=== PATIENT | male | born 1935 | race Caucasian/White ===

== ENCOUNTER → 2018-07-16 | Outpatient (CLI) | payer MEDICARE, BC ==
--- NOTE | 2018-07-16 12:27 | XR ---
EXAMINATION TYPE: XR chest 2V DATE OF EXAM: 07/16/2018 COMPARISON: 04/23/2016 TECHNIQUE: PA and lateral views submitted. HISTORY: Cough FINDINGS: The lungs are clear and there is no pneumothorax, pleural effusion, or focal pneumonia. Curvature t he spine with hypertrophic and degenerative changes. Arthropathy shoulders. No pneumothorax or overt failure. Atherosclerotic change of the aorta. IMPRESSION: 1. No acute process.
== END | disposition home or self-care (01) ==
LOC: RADXRMAIN 11:57
PROVIDERS: ATTEND Internal Medicine Geriatric Medicine
DX: R05 Cough (principal)
CPT/HCPCS: 71046

== ENCOUNTER 2019-11-15 10:42 | Observation (INO) | payer MEDICARE, BC ==
[2019-11-15] MEDS ORDERED: SODIUM CHLORIDE 0.9% 500 ML 500 ML IV STA (11:14)
--- NOTE | 2019-11-15 11:19 | ED ---
General Adult HPI - General Chief complaint: Shortness of Breath Stated complaint: SOB Time Seen by Provider: 11/15/19 11:00 Source: patient, RN notes reviewed, old records reviewed Mode of arrival: wheelchair Limitations: no limitations - History of Present Illness Initial comments: This is an 84-year-old male who presents to the emergency department stating over the last few days he's been short of breath anytime he gets up and moves around. Patient states he has no underlying breathing problems that he knows of. Patient states he has coronary artery disease in the past has had one stent. Patient states he takes one aspirin a day and occasionally take some [place]. Patient states he gets up and walks across [place] is noted that he is very short of breath where as a week or 2 ago this did not occur. Patient states he has noted a three-day history of black stools however they have not been bloody. Patient denies any abdominal pain. Patient denies any chest pain. Patient denies any palpitations. Patient denies any recent fever chills. - Related Data Home Medications Medication Instructions Recorded Confirmed Metoprolol Tartrate 25 mg PO BID 11/27/15 11/15/19 Pyridoxine [Vitamin B-6] 100 mg PO DAILY 11/27/15 11/15/19 Donepezil [Aricept] 10 mg PO HS 11/15/19 11/15/19 Multivit-Min/FA/Lycopen/Lutein 1 tab PO DAILY 11/15/19 11/15/19 [Centrum Silver Men Tablet] Prostate Health Vitamin 1 tab PO DAILY 11/15/19 11/15/19 amLODIPine [Norvasc] 2.5 mg PO DAILY 11/15/19 11/15/19 Allergies Allergy/AdvReac Type Severity Reaction Status Date / Time fluticasone propionate AdvReac "prescription Verified 04/23/16 16:31 [From Flonase] strength gave me double vision" lisinopril AdvReac Cough Verified 04/23/16 16:31 Review of Systems ROS Statement: Those systems with pertinent positive or pertinent negative responses have been documented in the HPI. ROS Other: All systems not noted in ROS Statement are negative. Past Medical History Past Medical History: GERD/Reflux, Hypertension, Myocardial Infarction ([place]), Sleep Apnea/CPAP/BIPAP Additional Past Medical History / Comment(s): HAVING LT LOWER ABD QUAD PAIN AND CONSTIPATION, dementia Last Myocardial Infarction Date:: SEP 2010 History of Any Multi-Drug Resistant Organisms: None Reported Past Surgical History: Heart Catheterization With Stent, Tonsillectomy Additional Past Surgical History / Comment(s): HEART STENT X 2 Past Anesthesia/Blood Transfusion Reactions: No Reported Reaction Additional Past Anesthesia/Blood Transfusion Reaction / Comment(s): NEVER HAS HAD BLOOD TRANSFUSION Date of Last Stent Placement:: 2009 Past Psychological History: No Psychological Hx Reported Smoking Status: Former smoker Past Alcohol Use History: None Reported Past Drug Use History: None Reported - Past Family History Mother Family Medical History: Chest Pain / Angina Father Family Medical History: Cancer Additional Family Medical History / Comment(s): PROSTATE Brother(s) Family Medical History: Cancer, Myocardial Infarction ([place]) Additional Family Medical History / Comment(s): COLON CA General Exam - General Exam Comments Initial Comments: GENERAL: Patient is well-developed and well-nourished. Patient is nontoxic and well- hydrated and is in no acute distress. ENT: Neck is soft and supple. No significant lymphadenopathy is noted. Oropharynx is clear. Moist mucous membranes. Neck has full range of motion without e liciting any pain. EYES: The sclera were anicteric and conjunctiva were pink and moist. Extraocular movements were intact and pupils were equal round and reactive to light. Eyelids were unremarkable. PULMONARY: Unlabored respirations. Good breath sounds bilaterally. No audible rales rhonchi or wheezing was noted. CARDIOVASCULAR: There is a regular rate and rhythm without any murmurs gallops or rubs. ABDOMEN: Soft and nontender with normal bowel sounds. No palpable organomegaly was n oted. There is no palpable pulsatile mass. SKIN: Skin is clear with no lesions or rashes and otherwise unremarkable. NEUROLOGIC: Patient is alert and oriented x3. Cranial nerves II through XII are grossly intact. Motor and sensory are also intact. Normal speech, volume and content. Symmetrical smile. MUSCULOSKELETAL: Normal extremities with adequate strength and full range of motion. No lower extremity swelling or edema. No calf tenderness. RECTAL: Rectal exam did have some dark brown stool LYMPHATICS: No significant lymphadenopathy is noted PSYCHIATRIC: Normal psychiatric evaluation. Limitations: no limitations Course Vital Signs 11/15/19 11/15/19 11/15/19 10:45 12:00 13:00 Temperature 97.8 F Pulse Rate 95 87 85 Respiratory 18 18 18 Rate Blood Pressure 119/73 114/83 O2 Sat by Pulse 93 L 98 Oximetry Medical Decision Making - Medical Decision Making EKG shows normal sinus rhythm at 87 bpm MI interval 146 dresses 92 QT interval 380 QTC is 457. Patient's EKG shows no ST segment elevation or depression. Occult stool is positive. Hemoglobin is low at 10. I spoke with Dr. Carrillo he agreed to admit the patient admitted the patient wrote admitting orders. Dr. Carrillo wanted the patient in the ICU. I spoke with Dr. Mcdaniel and he did not want the patient in the ICU at this point because he seems stable and he would be more than willing to take him in the ICU later if anything changed. - Lab Data Result diagrams: 11/15/19 11:36 11/15/19 11:36 Lab Results 11/15/19 11/15/19 11/15/19 Range/Units 11:36 11:36 11:36 WBC 11.4 H (3.8-10.6) k/uL RBC 3.19 L (4.30-5.90) m/uL Hgb 10.0 L (13.0-17.5) gm/dL Hct 31.1 L (39.0-53.0) % MCV 97.5 (80.0-100.0) fL MCH 31.3 (25.0-35.0) pg MCHC 32.1 (31.0-37.0) g/dL RDW 12.7 (11.5-15.5) % Plt Count 252 (150-450) k/uL Neutrophils % 68 % Lymphocytes % 20 % Monocytes % 7 % Eosinophils % 2 % Basophils % 1 % Neutrophils # 7.8 H (1.3-7.7) k/uL Lymphocytes # 2.3 (1.0-4.8) k/uL Monocytes # 0.8 (0-1.0) k/uL Eosinophils # 0.2 (0-0.7) k/uL Basophils # 0.1 (0-0.2) k/uL PT (9.0-12.0) sec INR (<1.2) APTT (22.0-30.0) sec Sodium 139 (137-145) mmol/L Potassium 4.5 (3.5-5.1) mmol/L Chloride 108 H (98-107) mmol/L Carbon Dioxide 23 (22-30) mmol/L Anion Gap 8 mmol/L BUN 66 H (9-20) mg/dL Creatinine 2.11 H (0.66-1.25) mg/dL Est GFR (CKD-EPI)AfAm 33 (>60 ml/min/1.73 sqM) Est GFR (CKD-EPI)NonAf 28 (>60 ml/min/1.73 sqM) Glucose 93 (74-99) mg/dL Plasma Lactic Acid Tyrone (0.7-2.0) mmol/L Calcium 9.2 (8.4-10.2) mg/dL Magnesium 2.1 (1.6-2.3) mg/dL Total Bilirubin 0.4 (0.2-1.3) mg/dL AST 29 (17-59) U/L ALT 24 (4-49) U/L Alkaline Phosphatase 57 (38-126) U/L Troponin I (0.000-0.034) ng/mL NT-Pro-B Natriuret Pep 162 pg/mL Total Protein 6.8 (6.3-8.2) g/dL Albumin 3.6 (3.5-5.0) g/dL Stool Occult Blood (Negative) 11/15/19 11/15/19 11/15/19 Range/Units 11:36 11:36 11:36 WBC (3.8-10.6) k/uL RBC (4.30-5.90) m/uL Hgb (13.0-17.5) gm/dL Hct (39.0-53.0) % MCV (80.0-100.0) fL MCH (25.0-35.0) pg MCHC (31.0-37.0) g/dL RDW (11.5-15.5) % Plt Count (150-450) k/uL Neutrophils % % Lymphocytes % % Monocytes % % Eosinophils % % Basophils % % Neutrophils # (1.3-7.7) k/uL Lymphocytes # (1.0-4.8) k/uL Monocytes # (0-1.0) k/uL Eosinophils # (0-0.7) k/uL Basophils # (0-0.2) k/uL PT 10.4 (9.0-12.0) sec INR 1.0 (<1.2) APTT 20.4 L (22.0-30.0) sec Sodium (137-145) mmol/L Potassium (3.5-5.1) mmol/L Chloride (98-107) mmol/L Carbon Dioxide (22-30) mmol/L Anion Gap mmol/L BUN (9-20) mg/dL Creatinine (0.66-1.25) mg/dL Est GFR (CKD-EPI)AfAm (>60 ml/min/1.73 sqM) Est GFR (CKD-EPI)NonAf (>60 ml/min/1.73 sqM) Glucose (74-99) mg/dL Plasma Lactic Acid Tyrone (0.7-2.0) mmol/L Calcium (8.4-10.2) mg/dL Magnesium (1.6-2.3) mg/dL Total Bilirubin (0.2-1.3) mg/dL AST (17-59) U/L ALT (4-49) U/L Alkaline Phosphatase (38-126) U/L Troponin I <0.012 (0.000-0.034) ng/mL NT-Pro-B Natriuret Pep pg/mL Total Protein (6.3-8.2) g/dL Albumin (3.5-5.0) g/dL Stool Occult Blood Positive (Negative) 11/15/19 Range/Units 12:34 WBC (3.8-10.6) k/uL RBC (4.30-5.90) m/uL Hgb (13.0-17.5) gm/dL Hct (39.0-53.0) % MCV (80.0-100.0) fL MCH (25.0-35.0) pg MCHC (31.0-37.0) g/dL RDW (11.5-15.5) % Plt Count (150-450) k/uL Neutrophils % % Lymphocytes % % Monocytes % % Eosinophils % % Basophils % % Neutrophils # (1.3-7.7) k/uL Lymphocytes # (1.0-4.8) k/uL Monocytes # (0-1.0) k/uL Eosinophils # (0-0.7) k/uL Basophils # (0-0.2) k/uL PT (9.0-12.0) sec INR (<1.2) APTT (22.0-30.0) sec Sodium (137-145) mmol/L Potassium (3.5-5.1) mmol/L Chloride (98-107) mmol/L Carbon Dioxide (22-30) mmol/L Anion Gap mmol/L BUN (9-20) mg/dL Creatinine (0.66-1.25) mg/dL Est GFR (CKD-EPI)AfAm (>60 ml/min/1.73 sqM) Est GFR (CKD-EPI)NonAf (>60 ml/min/1.73 sqM) Glucose (74-99) mg/dL Plasma Lactic Acid [place] 1.0 (0.7-2.0) mmol/L Calcium (8.4-10.2) mg/dL Magnesium (1.6-2.3) mg/dL Total Bilirubin (0.2-1.3) mg/dL AST (17-59) U/L ALT (4-49) U/L Alkaline Phosphatase (38-126) U/L Troponin I (0.000-0.034) ng/mL NT-Pro-B Natriuret Pep pg/mL Total Protein (6.3-8.2) g/dL Albumin (3.5-5.0) g/dL Stool Occult Blood (Negative) Disposition Clinical Impression: Dyspnea, Acute GI bleeding Disposition: ADMITTED IP TO THIS HOSP Referrals: Carroll Carrillo MD [Primary Care Provider] - 1-2 days Time of Disposition: 13:01
[2019-11-15 11:54] LABS: Basophils # (A) 0.1 k/uL (0-0.2); Basophils % (A) 1 %; Eosinophils # (A) 0.2 k/uL (0-0.7); Eosinophils % (A) 2 %; HCT 31.1 % (39.0-53.0); Lymphocytes # (A) 2.3 k/uL (1.0-4.8); Lymphocytes % (A) 20 %; MCH 31.3 pg (25.0-35.0); MCHC 32.1 g/dL (31.0-37.0); MCV 97.5 fL (80.0-100.0); Mean Platelet Volume 8.4; Monocytes # (A) 0.8 k/uL (0-1.0); Monocytes % (A) 7 %; Neutrophils # (A) 7.8 k/uL (1.3-7.7); Neutrophils % (A) 68 %; Platelet Count 252 k/uL (150-450); RBC 3.19 m/uL (4.30-5.90); RDW 12.7 % (11.5-15.5); WBC 11.4 k/uL (3.8-10.6)
[2019-11-15 12:11] LABS: Albumin 3.6 g/dL (3.5-5.0); Calcium 9.2 mg/dL (8.4-10.2); Magnesium 2.1 mg/dL (1.6-2.3); Potassium 4.5 mmol/L (3.5-5.1); Total Bilirubin 0.4 mg/dL (0.2-1.3); Total Protein 6.8 g/dL (6.3-8.2)
[2019-11-15 12:17] LABS: Prothrombin Time 10.4 sec (9.0-12.0)
--- NOTE | 2019-11-15 12:29 | XR ---
EXAMINATION TYPE: XR chest 2V DATE OF EXAM: 11/15/2019 COMPARISON: Chest x-ray July 16, 2018 HISTORY: Increased hypoxia for 2 days. TECHNIQUE: Frontal and lateral views of the chest are obtained. FINDINGS: There is chronic parenchymal changes without suspicious focal air space opacity, pleural e ffusion, or pneumothorax seen. The cardiac silhouette size is upper limits of normal with atheroscle rotic and ectatic aorta. Multilevel spurring spine redemonstrated.. IMPRESSION: Chronic changes without acute pulmonary process. No significant change from prior.
[2019-11-15 12:40] LABS: Partial Thromboplastin Time 20.4 sec (22.0-30.0)
[2019-11-15] MEDS ORDERED: SODIUM CHLORIDE 0.9% 1,000 ML IV ONE (13:07)
[2019-11-15 15:02] LABS: Basophils # (A) 0.1 k/uL (0-0.2); Basophils % (A) 1 %; Eosinophils # (A) 0.1 k/uL (0-0.7); Eosinophils % (A) 1 %; HCT 30.7 % (39.0-53.0); Lymphocytes # (A) 2.2 k/uL (1.0-4.8); Lymphocytes % (A) 19 %; MCHC 32.7 g/dL (31.0-37.0); MCV 97.8 fL (80.0-100.0); Mean Platelet Volume 8.1; Monocytes # (A) 0.5 k/uL (0-1.0); Monocytes % (A) 4 %; Neutrophils # (A) 8.8 k/uL (1.3-7.7); Neutrophils % (A) 73 %; Platelet Count 255 k/uL (150-450); RBC 3.14 m/uL (4.30-5.90); RDW 12.9 % (11.5-15.5); Reticulocyte % 2.7 % (0.5-2.0)
[2019-11-15] MEDS ORDERED: PANTOPRAZOLE 40 MG/10 ML VIAL IVP SCH (18:15)
[2019-11-15 18:34] LABS: % Iron Saturation 63.68 (15.00-50.00); Iron 142 ug/dL (65-175); Total Iron Binding Capacity 223 ug/dL (228-460)
[2019-11-15 19:00] LABS: Folate, Serum >24.0 ng/mL
--- NOTE | 2019-11-15 19:51 | P.HPIM ---
History of Present Illness H&P Date: 11/15/19 Chief Complaint: Shortness of breath, black stool, acute blood loss anemia, CAD, 84-year-old male one of my office patient with known for long time with past medical history of CAD post CA few years ago who seen Dr. batista on regular basis was on to have history of hypertension hyperlipidemia and obstructive sleep apnea who also was diagnosed with Alzheimer disease this past year has been on medication and doing slightly but better. Patient started complaining to his about having shortness of breath with the exertion become much worse the last 3 days this morning he was post to come to the office for evaluation but he felt very bad ask his to bring him to [facility]. Apparently has been having black stool and tarry stool for the last 24 hours at [facility] department found to have hemoglobin of 10 g with positive Hemoccult and mild gastritis. Patient now was started on pantoprazole IV start on IV fluid consult gastroenterology Will admit patient to the hospital for the above problem. Review of Systems CONSTITUTIONAL: Well-developed no acute respiratory distress. Positive lightheadedness EYES: No icterus sclerae, no conjunctivitis. EARS, NOSE, MOUTH, THROAT, and FACE: No sore throat, lymphadenopathy, carotid bruits or deformity. RESPIRATORY: No SOB cough or wheezes. CARDIOVASCULAR: No CP, Palpitation, positive PND orthopnea which shortness of breath no angina. GASTROINTESTINAL: Positive abdominal discomfort with tarry stool and mid abdominal pain and discomfort no nausea vomiting mild constipation. GENITOURINARY: Negative for Hematuria or UTI, no kidney stones. INTEGUMENT/BREAST: Negative for any muscular injury with mild osteoarthritis.. HEMATOLOGIC/LYMPHATIC: Negative for bleed or purpura. MUSCULOSKELTAL: Negative for Myalgia or arthralgia. NEURLOGICAL: No LOC, Sz or syncope, blurred vision dizziness or abnormality.. BEHAVIORAL/PSYCH: Negative. Mild memory loss. ENDOCRINE: Negative. Past Medical History Past Medical History: GERD/Reflux, Hypertension, Myocardial Infarction ([place]), Sleep Apnea/CPAP/BIPAP Additional Past Medical History / Comment(s): HAVING LT LOWER ABD QUAD PAIN AND CONSTIPATION, dementia Last Myocardial Infarction Date:: SEP 2010 History of Any Multi-Drug Resistant Organisms: None Reported Past Surgical History: Heart Catheterization With Stent, Tonsillectomy Additional Past Surgical History / Comment(s): HEART STENT X 2 Past Anesthesia/Blood Transfusion Reactions: No Reported Reaction Additional Past Anesthesia/Blood Transfusion Reaction / Comment(s): NEVER HAS HAD BLOOD TRANSFUSION Date of Last Stent Placement:: 2009 Past Psychological History: No Psychological Hx Reported Smoking Status: Former smoker Past Alcohol Use History: None Reported Past Drug Use History: None Reported - Past Family History Mother Family Medical History: Chest Pain / Angina Father Family Medical History: Cancer Additional Family Medical History / Comment(s): PROSTATE Brother(s) Family Medical History: Cancer, Myocardial Infarction ([place]) Additional Family Medical History / Comment(s): COLON [place] Medications and Allergies Home Medications Medication Instructions Recorded Confirmed Type Metoprolol Tartrate 25 mg PO BID 11/27/15 11/15/19 History Pyridoxine [Vitamin B-6] 100 mg PO DAILY 11/27/15 11/15/19 History Donepezil [Aricept] 10 mg PO HS 11/15/19 11/15/19 History Multivit-Min/FA/Lycopen/Lutein 1 tab PO DAILY 11/15/19 11/15/19 History [Centrum Silver Men Tablet] Prostate Health Vitamin 1 tab PO DAILY 11/15/19 11/15/19 History amLODIPine [Norvasc] 2.5 mg PO DAILY 11/15/19 11/15/19 History Allergies Allergy/AdvReac Type Severity Reaction Status Date / Time fluticasone propionate AdvReac "prescription Verified 04/23/16 16:31 [From Flonase] strength gave me double vision" lisinopril AdvReac Cough Verified 04/23/16 16:31 Physical Exam Vitals: Vital Signs Temp Pulse Resp BP Pulse Ox 11/15/19 18:38 98.3 F 100 18 147/88 97 11/15/19 14:59 72 18 100/57 11/15/19 13:00 85 18 114/83 98 11/15/19 12:00 87 18 11/15/19 10:45 97.8 F 95 18 119/73 93 L Intake and Output 11/15/19 11/15/19 11/15/19 06:59 14:59 22:59 Other: Weight 99.79 kg General Appearance: Alert, cooperative, no distress, appears stated age. Neck HEENT: Supple, no lymphadenopathy, no thyroid enlargement, no carotid bruits. Lungs: Clear to auscultation without crackles or wheezes no rhonchi, no deformity. Chest Wall: Chest wall normal expansion with deep inspiration no tenderness and no deformity was found on exam, no costochondral pain or discomfort. Heart: Regular rate and rhythm, S1, S2 normal positive S3 positive ejection murmur Back: Symmetric, no curvature, ROM normal, no CVA tenderness. Abdomen: Soft positive bowel sound organomegaly slight discomfort epigastric area no rebound or rigidity. Extremities: Extremities normal, atraumatic, no cyanosis or edema. Pulses: 2+ and symmetric. Skin: Skin color, texture, tugor normal, no rashes or lesions. Neurologic: Alert oriented x3 cranial nerves II through XII intact, no motor deficit, no abnormal balance or gait. Results CBC & Chem 7: 11/15/19 14:53 11/15/19 11:36 Labs: Abnormal Lab Results - Last 24 Hours (Table) 11/15/19 11/15/19 11/15/19 Range/Units 11:36 11:36 11:36 WBC 11.4 H (3.8-10.6) k/uL RBC 3.19 L (4.30-5.90) m/uL Hgb 10.0 L (13.0-17.5) gm/dL Hct 31.1 L (39.0-53.0) % Neutrophils # 7.8 H (1.3-7.7) k/uL Retic Count (0.5-2.0) % APTT 20.4 L (22.0-30.0) sec Chloride 108 H (98-107) mmol/L BUN 66 H (9-20) mg/dL Creatinine 2.11 H (0.66-1.25) mg/dL TIBC (228-460) ug/dL % Saturation (15.00-50.00) 11/15/19 11/15/19 Range/Units 11:36 14:53 WBC 12.0 H (3.8-10.6) k/uL RBC 3.14 L (4.30-5.90) m/uL Hgb 10.0 L (13.0-17.5) gm/dL Hct 30.7 L (39.0-53.0) % Neutrophils # 8.8 H (1.3-7.7) k/uL Retic Count 2.7 H (0.5-2.0) % APTT (22.0-30.0) sec Chloride (98-107) mmol/L BUN (9-20) mg/dL Creatinine (0.66-1.25) mg/dL TIBC 223 L (228-460) ug/dL % Saturation 63.68 H (15.00-50.00) Thrombosis Risk Factor Assmnt - DVT/VTE Prophylaxis DVT/VTE Prophylaxis: Mechanical Prophylaxis ordered Assessment and Plan Plan: 1 acute GI bleed: Most likely bleeding ulcer or gastritis, patient will be hospitalized will consult GI, patient will be on pantoprazole IV we'll plan to send him for an EGD tomorrow if persistent bleeding might require lower GI study as well. 2 acute blood loss anemia: With significant decrease in hemoglobin over 2 g in the last few weeks along with slightly increased BUN consistent with the bleeding. Patient will have CBC every 8 hours a continue fluid resuscitation and transfusion Be done only if his hemoglobin below 8 with symptoms. 3 significant shortness of breath: Most likely will has been worsening with his anemia continue to correct his anemia and GI bleed continue to treat patient patient be seeing cardiology in consultation. 4 acute kidney injury with chronic kidney disease: Patient is a stage III chronic kidney disease with acute kidney injury with the current GI bleed and volume loss specially with the increase the urine continue mild hydration repeat CMP daily. 5 CAD post CA post PCI and stent placement last one was in 2009 has been seeing cardiology regular basis. 6 Hypertension: Patient is doing well on metoprolol and amlodipine. 7 hyperlipidemia: Has been on statin resume medication. 8 Alzheimer disease: Continue patient on donepezil 10 mg daily at bedtime. 9 DVT prophylaxis: Patient will have DEANGELO hose and Venodyne boots. 10 prophylaxis: Will continue patient on pantoprazole IV. CODE STATUS: Full code. Admit patient to inpatient status for more than 2 nights.
[2019-11-15] MEDS: METOPROLOL TARTRATE 25 MG TAB PO SCH (20:16)
[2019-11-15] MEDS: DONEPEZIL 10 MG TAB PO SCH (20:16)
[2019-11-15] MEDS: PANTOPRAZOLE 40 MG/10 ML VIAL IVP SCH (20:17)
--- NOTE | 2019-11-15 20:34 | P.CONS ---
History of Present Illness - Reason for Consult Consult date: 11/15/19 Anemia, GI bleed Requesting physician: Carroll Carrillo - Chief Complaint Shortness of breath, melena - History of Present Illness 84-year-old male with multiple medical comorbidities including coronary artery disease, hypertension, hyperlipidemia, also versed disease and obstructive sleep apnea who presented to the hospital with increasing shortness of breath and dark-colored stool. The patient reports worsening shortness of breath over the past 3 days. Shortness of breath and is worsened with exertion. Patient also reports noticing dark colored stool on and off for the past few days. He does take aspirin daily, low-dose. He denies any regular NSAID use. He denies any associated abdominal pain, nausea or vomiting. Denies any prior history of GI bleeds. Did have colonoscopy in 2016 significant for polypectomy, hemorrhoids and diverticulosis. Stool testing was positive for blood. WBC 11.4, hemoglobin 10 and found to be 10 on repeat draw, platelet count 252,000, INR 1, total bilirubin 0.4, alkaline phosphatase 57, AST 29 and ALT 24 on presentation. Review of Systems REVIEW OF SYSTEMS: CONSTITUTIONAL: Denies any fevers, chills, weight change or fatigue. CARDIOVASCULAR: Denies any chest pain, palpitations high or low blood pressures RESPIRATORY: Denies any hemoptysis or cough, but he does report shortness of breath worse with exertion. GENITOURINARY: No dysuria or hematuria. MUSCULOSKELETAL: No weakness reported. SKIN: Denies any new rashes or lesions, jaundice or pallor. PSYCHIATRIC: Denies any depression or anxiety, but the patient does have a known history of memory impairment. NEUROLOGY: Denies headache, denies any new focal deficits. EARS/NOSE/THROAT: No recent hearing change, congestion, nasal discharge or sore throat. EYES: No pain in eyes, discharge or change in vision. GASTROINTESTINAL: As per HPI. Past Medical History Past Medical History: GERD/Reflux, Hypertension, [place]ocardial Infarction ([place]), Sleep Apnea/CPAP/BIPAP Additional Past Medical History / Comment(s): HAVING LT LOWER ABD QUAD PAIN AND CONSTIPATION, dementia Last Myocardial Infarction Date:: SEP 2010 History of Any Multi-Drug Resistant Organisms: None Reported Past Surgical History: Heart Catheterization With Stent, Tonsillectomy Additional Past Surgical History / Comment(s): HEART STENT X 2 Past Anesthesia/Blood Transfusion Reactions: No Reported Reaction Additional Past Anesthesia/Blood Transfusion Reaction / Comm: NEVER HAS HAD BLOOD TRANSFUSION Date of Last Stent Placement:: 2009 Smoking Status: Former smoker - Past Family History Mother Family Medical History: Chest Pain / Angina Father Family Medical History: Cancer Additional Family Medical History / Comment(s): PROSTATE Brother(s) Family Medical History: Cancer, Myocardial Infarction ([place]) Additional Family Medical History / Comment(s): COLON CA Medications and Allergies Home Medications Medication Instructions Recorded Confirmed Type Metoprolol Tartrate 25 mg PO BID 11/27/15 11/15/19 History Pyridoxine [Vitamin B-6] 100 mg PO DAILY 11/27/15 11/15/19 History Donepezil [Aricept] 10 mg PO HS 11/15/19 11/15/19 History Multivit-Min/FA/Lycopen/Lutein 1 tab PO DAILY 11/15/19 11/15/19 History [Centrum Silver Men Tablet] Prostate Health Vitamin 1 tab PO DAILY 11/15/19 11/15/19 History amLODIPine [Norvasc] 2.5 mg PO DAILY 11/15/19 11/15/19 History Allergies Allergy/AdvReac Type Severity Reaction Status Date / Time fluticasone propionate AdvReac "prescription Verified 04/23/16 16:31 [From Flonase] strength gave me double vision" lisinopril AdvReac Cough Verified 04/23/16 16:31 Physical Exam Vitals: Vital Signs Temp Pulse Pulse Resp BP BP Pulse Ox 11/15/19 20:02 98 F 77 18 142/78 94 L 11/15/19 18:38 98.3 F 100 18 147/88 97 11/15/19 14:59 72 18 100/57 11/15/19 13:00 85 18 114/83 98 11/15/19 12:00 87 18 11/15/19 10:45 97.8 F 95 18 119/73 93 L Intake and Output 11/15/19 11/15/19 11/15/19 06:59 14:59 22:59 Other: Weight 99.79 kg 99.79 kg On physical examination, patient appears comfortable in no apparent distress. HEAD: Normocephalic, atraumatic. EYES: No scleral icterus. No conjunctival injection. MOUTH: No lesions, tongue midline. NECK: Trachea midline, no gross abnormalities. CHEST: Clear to auscultation with no wheezing or rhonchi appreciated. HEART: Regular rate and rhythm. ABDOMEN: Soft, obese. Bowel sounds are positive. No organomegaly. No guarding or rigidity. EXTREMITIES: No pedal edema. SKIN: No rashes, no jaundice. NEUROLOGIC: Alert and oriented. No focal deficits. Results CBC & Chem 7: 11/15/19 14:53 11/15/19 11:36 Labs: Abnormal Lab Results - Last 24 Hours (Table) 11/15/19 11/15/19 11/15/19 Range/Units 11:36 11:36 11:36 WBC 11.4 H (3.8-10.6) k/uL RBC 3.19 L (4.30-5.90) m/uL Hgb 10.0 L (13.0-17.5) gm/dL Hct 31.1 L (39.0-53.0) % Neutrophils # 7.8 H (1.3-7.7) k/uL Retic Count (0.5-2.0) % APTT 20.4 L (22.0-30.0) sec Chloride 108 H (98-107) mmol/L BUN 66 H (9-20) mg/dL Creatinine 2.11 H (0.66-1.25) mg/dL TIBC (228-460) ug/dL % Saturation (15.00-50.00) 11/15/19 11/15/19 Range/Units 11:36 14:53 WBC 12.0 H (3.8-10.6) k/uL RBC 3.14 L (4.30-5.90) m/uL Hgb 10.0 L (13.0-17.5) gm/dL Hct 30.7 L (39.0-53.0) % Neutrophils # 8.8 H (1.3-7.7) k/uL Retic Count 2.7 H (0.5-2.0) % APTT (22.0-30.0) sec Chloride (98-107) mmol/L BUN (9-20) mg/dL Creatinine (0.66-1.25) mg/dL TIBC 223 L (228-460) ug/dL % Saturation 63.68 H (15.00-50.00) Assessment and Plan (1) Acute GI bleeding Narrative/Plan: 84-year-old male presenting to the hospital with complaints of shortness of breath worse with exertion and dark-colored stool. We'll testing positive for blood. Patient is on daily aspirin but denies any other NSAID therapy. No prior history of GI bleed. Last colonoscopy 2016 significant for hemorrhoids, diverticulosis and polypectomy. Unknown etiology with suspicion for possible upper GI bleed with differential including peptic ulcer disease, gastritis/esophagitis, AVM or other etiology. Current Visit: Yes Status: Acute Code(s): K92.2 - GASTROINTESTINAL HEMORRHAGE, UNSPECIFIED SNOMED Code(s): 06228976 (2) Anemia associated with acute blood loss Current Visit: Yes Status: Acute Code(s): D62 - ACUTE POSTHEMORRHAGIC ANEMIA SNOMED Code(s): 099054056 Plan: Supportive care Clear liquid diet Nothing by mouth after midnight Protonix increased to twice a day Continue to monitor CBC and transfuse as needed Plan for EGD for further evaluation tomorrow Avoid NSAID therapy Thank you for allowing us to participate in the care of the patient we will continue
[2019-11-16 07:18] LABS: Basophils # (A) 0.1 k/uL (0-0.2); Basophils % (A) 1 %; Eosinophils # (A) 0.2 k/uL (0-0.7); Eosinophils % (A) 2 %; HCT 26.1 % (39.0-53.0); Lymphocytes # (A) 2.2 k/uL (1.0-4.8); Lymphocytes % (A) 23 %; MCH 31.7 pg (25.0-35.0); MCHC 32.5 g/dL (31.0-37.0); MCV 97.7 fL (80.0-100.0); Mean Platelet Volume 8.4; Monocytes # (A) 0.6 k/uL (0-1.0); Monocytes % (A) 6 %; Neutrophils # (A) 6.5 k/uL (1.3-7.7); Neutrophils % (A) 67 %; Platelet Count 207 k/uL (150-450); RBC 2.67 m/uL (4.30-5.90); RDW 12.7 % (11.5-15.5); WBC 9.8 k/uL (3.8-10.6)
[2019-11-16 07:25] LABS: HGB 8.5 gm/dL (13.0-17.5)
[2019-11-16 07:38] LABS: Calcium 8.8 mg/dL (8.4-10.2); Potassium 4.8 mmol/L (3.5-5.1); Total Bilirubin 0.3 mg/dL (0.2-1.3)
--- NOTE | 2019-11-16 09:28 | P.CRDCN ---
History of Present Illness Consult date: 11/16/19 Requesting physician: Carroll Carrillo Chief complaint: Shortness of breath History of present illness: This is a pleasant 84-year-old gentleman who follows with Dr. Kaiser in the office. He has a known history of hypertension, hyperlipidemia, coronary artery disease with prior stenting of the RCA in 2010, chronic kidney disease, he is a nonsmoker. Patient presents to the hospital on this occasion with symptoms of shortness of breath for at least a two-week duration, patient also states that he had noticed black stool, no bright red blood in his stool. Chest x-ray on presentation here showed chronic changes without any acute pulmonary process. EKG showed a normal sinus rhythm with inferior Q waves. Blood pressure 128/74 with a heart rate in the 80s, 96% on room air. Admission labs, white blood cell count 11.4, hemoglobin 10.0, platelet count 252. Sodium 139, potassium 4.5, BUN 66, creatinine 2.1. Magnesium 2.1. Iron 142, iron saturation 223, ferritin 63.6. Stool for Occultl blood positive. This morning's labs, white blood cell count 9.8, hemoglobin 8.5, platelet count 207. Sodium 139, potassium 4.8, BUN 53, creatinine 2.0. At the time of my examination this morning, patient is sitting up in his chair at bedside, he denies any shortness of breath at present. Patient is scheduled to undergo an EGD today. Past Medical History Past Medical History: GERD/Reflux, Hypertension, Myocardial Infarction ([place]), Sleep Apnea/CPAP/BIPAP Additional Past Medical History / Comment(s): HAVING LT LOWER ABD QUAD PAIN AND CONSTIPATION, dementia Last Myocardial Infarction Date:: SEP 2010 History of Any Multi-Drug Resistant Organisms: None Reported Past Surgical History: Heart Catheterization With Stent, Tonsillectomy Additional Past Surgical History / Comment(s): HEART STENT X 2 Past Anesthesia/Blood Transfusion Reactions: No Reported Reaction Additional Past Anesthesia/Blood Transfusion Reaction / Comment(s): NEVER HAS HAD BLOOD TRANSFUSION Date of Last Stent Placement:: 2009 Smoking Status: Former smoker - Past Family History Mother Family Medical History: Chest Pain / Angina Father Family Medical History: Cancer Additional Family Medical History / Comment(s): PROSTATE Brother(s) Family Medical History: Cancer, Myocardial Infarction ([place]) Additional Family Medical History / Comment(s): COLON CA Medications and Allergies Home Medications Medication Instructions Recorded Confirmed Type Metoprolol Tartrate 25 mg PO BID 11/27/15 11/15/19 History Pyridoxine [Vitamin B-6] 100 mg PO DAILY 11/27/15 11/15/19 History Donepezil [Aricept] 10 mg PO HS 11/15/19 11/15/19 History Multivit-Min/FA/Lycopen/Lutein 1 tab PO DAILY 11/15/19 11/15/19 History [Centrum Silver Men Tablet] Prostate Health Vitamin 1 tab PO DAILY 11/15/19 11/15/19 History amLODIPine [Norvasc] 2.5 mg PO DAILY 11/15/19 11/15/19 History Allergies Allergy/AdvReac Type Severity Reaction Status Date / Time fluticasone propionate AdvReac "prescription Verified 04/23/16 16:31 [From Flonase] strength gave me double vision" lisinopril AdvReac Cough Verified 04/23/16 16:31 Physical Exam Vitals: Vital Signs Temp Pulse Pulse Resp BP BP Pulse Ox 11/16/19 03:57 97.8 F 85 18 129/75 96 11/16/19 00:00 82 18 138/75 95 11/15/19 20:02 98 F 77 18 142/78 94 L 11/15/19 18:38 98.3 F 100 18 147/88 97 11/15/19 14:59 72 18 100/57 11/15/19 13:00 85 18 114/83 98 11/15/19 12:00 87 18 11/15/19 10:45 97.8 F 95 18 119/73 93 L Intake and Output 11/15/19 11/16/19 11/16/19 22:59 06:59 14:59 Output Total 380 Balance -380 Output: Urine 380 Other: Voiding Method Toilet # Voids 2 # Bowel Movements 1 Weight 99.79 kg 106.5 kg PHYSICAL EXAMINATION: GENERAL: 84-year-old gentleman in no acute distress at the time of my examination HEENT: Head is atraumatic, normocephalic. Pupils equal, round. Sclera anicteric. Conjunctiva are clear. Mucous membranes of the mouth are moist. Neck is supple. There is no elevated jugular venous pressure. No carotid bruit is heard. HEART EXAMINATION: Heart S1, S2 systolic ejection murmur. CHEST EXAMINATION: Lungs are clear to auscultation and precussion. No chest wall tenderness is noted on palpation or with deep breathing. ABDOMEN: Soft, nontender. Bowel sounds are heard. No organomegaly noted. EXTREMITIES: 2+ peripheral pulses with no evidence of peripheral edema and no calf tenderness noted. NEUROLOGIC patient is awake, alert and oriented 3 . Results 11/16/19 05:52 11/16/19 05:52 Cardiac Enzymes 11/15/19 11/15/19 11/16/19 Range/Units 11:36 11:36 05:52 AST 29 27 (17-59) U/L Troponin I <0.012 (0.000-0.034) ng/mL Coagulation 11/15/19 Range/Units 11:36 PT 10.4 (9.0-12.0) sec APTT 20.4 L (22.0-30.0) sec CBC 11/15/19 11/15/19 11/16/19 Range/Units 11:36 14:53 05:52 WBC 11.4 H 12.0 H 9.8 (3.8-10.6) k/uL RBC 3.19 L 3.14 L 2.67 L (4.30-5.90) m/uL Hgb 10.0 L 10.0 L 8.5 L D (13.0-17.5) gm/dL Hct 31.1 L 30.7 L 26.1 L (39.0-53.0) % Plt Count 252 255 207 (150-450) k/uL Comprehensive Metabolic Panel 11/15/19 11/16/19 Range/Units 11:36 05:52 Sodium 139 139 (137-145) mmol/L Potassium 4.5 4.8 (3.5-5.1) mmol/L Chloride 108 H 108 H (98-107) mmol/L Carbon Dioxide 23 25 (22-30) mmol/L BUN 66 H 53 H (9-20) mg/dL Creatinine 2.11 H 2.08 H (0.66-1.25) mg/dL Glucose 93 83 (74-99) mg/dL Calcium 9.2 8.8 (8.4-10.2) mg/dL AST 29 27 (17-59) U/L ALT 24 24 (4-49) U/L Alkaline Phosphatase 57 54 (38-126) U/L Total Protein 6.8 6.0 L (6.3-8.2) g/dL Albumin 3.6 3.0 L (3.5-5.0) g/dL Current Medications Generic Name Dose Route Start Last Admin Trade Name Freq PRN Reason Stop Dose Admin Amlodipine Besylate 2.5 mg 11/16/19 09:00 Norvasc PO DAILY OC Donepezil HCl 10 mg 11/15/19 21:00 11/15/19 20:16 Aricept PO 10 mg HS OC Administration Metoprolol Tartrate 25 mg 11/15/19 21:00 11/15/19 20:16 Lopressor PO 25 mg BID OC Administration Pantoprazole Sodium 40 mg 11/15/19 21:00 11/15/19 20:17 Protonix IVP 40 mg BID OC Administration Pyridoxine HCl 100 mg 11/16/19 09:00 Vitamin B-6 PO DAILY OC Intake and Output 11/15/19 11/16/19 11/16/19 22:59 06:59 14:59 Output Total 380 Balance -380 Output: Urine 380 Other: Voiding Method Toilet # Voids 2 # Bowel Movements 1 Weight 99.79 kg 106.5 kg 11/16/19 05:52 11/16/19 05:52 EKG Interpretations (text) EKG shows a normal sinus rhythm with inferior Q waves, no acute changes noted. Assessment and Plan Plan: Assessment and plan #1 acute GI bleed, patient scheduled for EGD today. Hemoglobin this morning 8.5. #2 significant shortness of breath, likely secondary to anemia #3 coronary artery disease with prior RCA stenting in 2010 #4 hypertension #5 hyperlipidemia #6 acute on chronic kidney disease #7 Alzheimer's Plan We will obtain an echocardiogram with Doppler study. Patient is scheduled today to undergo an EGD. Further recommendations to follow. DNP note has been reviewed, I agree with a documented findings and plan of care. Patient was seen and examined.
[2019-11-16] MEDS: PYRIDOXINE 50 MG TAB PO SCH (10:55)
[2019-11-16] MEDS ORDERED: PROPOFOL 10 MG/ML 20 ML VIAL IV ONE (11:16)
[2019-11-16] MEDS ORDERED: LIDOCAINE 1% INJ 10MG/ML (20 ML MDV) ONE (11:16)
[2019-11-16] MEDS ORDERED: SODIUM CHLORIDE 0.9% 500 ML 500 ML IV ONE ×2 (11:20)
--- NOTE | 2019-11-16 11:51 | P.PCN ---
Date of Procedure: 11/16/19 Description of Procedure: BRIEF HISTORY: 84-year-old male presenting to the hospital with complaints of shortness of breath worse with exertion and dark-colored stool. We'll testing positive for blood. Patient is on daily aspirin but denies any other NSAID therapy. No prior history of GI bleed. Last colonoscopy 2016 significant for hemorrhoids, diverticulosis and polypectomy. PROCEDURE PERFORMED: Esophagogastroduodenoscopy with biopsy. PREOPERATIVE DIAGNOSIS: Anemia of acute blood loss, GI bleed, melena. ESTIMATED BLOOD LOSS: Minimal. IV sedation per anesthesia. PROCEDURE: After informed consent was obtained, the patient was brought into the endoscopy unit. IV sedation was administered by Anesthesia under continuous monitoring. Initially the Olympus GIF-190 video endoscope was inserted into the mouth. Esophagus intubated without any difficulty. It was gradually advanced into the stomach and duodenum and carefully examined. The bulb and the second part of the duodenum were significant for some mild erythema suggestive of mild duodenitis with biopsies taken. The scope at this time was withdrawn to the stomach, adequately insufflated with air, and upon careful examination, mucosa of the antrum, body, cardia and the fundus appeared normal, with biopsies taken of antrum body to rule out Helicobacter pylori infection. The scope was then withdrawn into the esophagus. The GE junction was located at 35 cm from the incisorswith a 5 cm hiatal hernia noted. The esophagus appeared grossly normal except for a nonbleeding 3 mm ulcer approximately 34 cm from the incisors which was biopsied. The patient tolerated the procedure well.. IMPRESSION: 1. Nonbleeding esophageal ulcer without high-risk stigmata for rebleeding, biopsied. 2. Mild duodenitis, biopsied. 3. Hiatal hernia. 4. Biopsies of the antrum and body. RECOMMENDATIONS: The findings of this examination were discussed with the patient. Continue Protonix 40 mg twice daily indefinitely. Avoid NSAID use. We'll add Carafate 3 times a day before meals and at bedtime. Continue to monitor CBC and transfuse as needed. No plans for further endoscopy at this time.
[2019-11-16] MEDS: amLODIPine 2.5 MG TAB PO SCH (12:07)
[2019-11-16] MEDS: SUCRALFATE 1 GM TAB PO SCH ×3 (12:07→20:09)
[2019-11-16] MEDS: METOPROLOL TARTRATE 25 MG TAB PO SCH ×2 (12:07→20:09)
--- NOTE | 2019-11-16 13:56 | P.PN ---
Subjective Progress Note Date: 11/16/19 84-year-old male one of my office patient with known for long time with past medical history of CAD post OH few years ago who seen Dr. batista on regular basis was on to have history of hypertension hyperlipidemia and obstructive sleep apnea who also was diagnosed with Alzheimer disease this past year has been on medication and doing slightly but better. Patient started complaining to his about having shortness of breath with the exertion become much worse the last 3 days this morning he was post to come to the office for evaluation but he felt very bad ask his to bring him to [facility]. Apparently has been having black stool and tarry stool for the last 24 hours at [facility] department found to have hemoglobin of 10 g with positive Hemoccult and mild gastritis. Patient now was started on pantoprazole IV start on IV fluid consult gastroenterology Will admit patient to the hospital for the above problem. 11/16: Patient underwent EGD that found nonbleeding esophageal ulcer without high risk stigmata for rebleeding, biopsied. Mild duodenitis, biopsy, hiatal hernia, biopsies of antrum and body. Recommendations were Protonix 40 mg twice daily, avoid nonsteroidal anti-inflammatory drugs and add Carafate 3 times daily before meals and at bedtime. No plan for further endoscopy. Repeat blood work reveals hemoglobin of 8.5, BUN 53 and creatinine 2.08. Patient has been afebrile, heart rate 97, blood pressure 115/79, pulse ox 95% on room air. Anticipate possible d ischarge tomorrow. Patient will be transferred to [facility] floor without telemetry. IV will be discontinued. Echocardiogram is pending. Review of Systems CONSTITUTIONAL: Well-developed no acute respiratory distress. Positive lightheadedness EYES: No icterus sclerae, no conjunctivitis. EARS, NOSE, MOUTH, THROAT, and FACE: No sore throat, lymphadenopathy, carotid bruits or deformity. RESPIRATORY: No SOB cough or wheezes. CARDIOVASCULAR: No CP, Palpitation, positive PND orthopnea which shortness of breath no angina. GASTROINTESTINAL: Denies abdominal discomfort with tarry stool and mid abdominal pain and discomfort no nausea vomiting mild constipation. GENITOURINARY: Negative for Hematuria or UTI, no kidney stones. INTEGUMENT/BREAST: Negative for any muscular injury with mild osteoarthritis.. HEMATOLOGIC/LYMPHATIC: Negative for bleed or purpura. MUSCULOSKELTAL: Negative for Myalgia or arthralgia. NEURLOGICAL: No LOC, Sz or syncope, blurred vision dizziness or abnormality.. BEHAVIORAL/PSYCH: Negative. Mild memory loss. ENDOCRINE: Negative. Objective - Vital Signs Vital signs: Vital Signs Temp 97.8 F 11/16/19 08:00 Pulse 98 11/16/19 08:00 Resp 16 11/16/19 08:00 BP 145/81 11/16/19 08:00 Pulse Ox 98 11/16/19 08:00 Intake & Output 11/15/19 11/16/19 11/16/19 18:59 06:59 18:59 Output Total 380 Balance -380 Weight 99.79 kg 106.5 kg Output: Urine 380 Other: Voiding Method Toilet # Voids 2 # Bowel Movements 1 - Exam General Appearance: Alert, cooperative, no distress, appears stated age. Patient is resting comfortably in a recliner. Neck HEENT: Supple, no lymphadenopathy, no thyroid enlargement, no carotid bruits. Lungs: Clear to auscultation without crackles or wheezes no rhonchi, no deformity. Chest Wall: Chest wall normal expansion with deep inspiration no tenderness and no deformity was found on exam, no costochondral pain or discomfort. Heart: Regular rate and rhythm, S1, S2 normal positive S3 positive ejection murmur Back: Symmetric, no curvature, ROM normal, no CVA tenderness. Abdomen: Soft positive bowel sound, organomegaly, slight discomfort epigastric area no rebound or rigidity. Extremities: Extremities normal, atraumatic, no cyanosis or edema. Pulses: 2+ and symmetric. Skin: Skin color, texture, tugor normal, no rashes or lesions. Neurologic: Alert oriented x3 cranial nerves II through XII intact, no motor deficit, no abnormal balance or gait. - Labs CBC & Chem 7: 11/16/19 05:52 11/16/19 05:52 Labs: Abnormal Lab Results - Last 24 Hours (Table) 11/15/19 11/15/19 11/15/19 Range/Units 11:36 11:36 11:36 WBC 11.4 H (3.8-10.6) k/uL RBC 3.19 L (4.30-5.90) m/uL Hgb 10.0 L (13.0-17.5) gm/dL Hct 31.1 L (39.0-53.0) % Neutrophils # 7.8 H (1.3-7.7) k/uL Retic Count (0.5-2.0) % APTT 20.4 L (22.0-30.0) sec Chloride 108 H (98-107) mmol/L BUN 66 H (9-20) mg/dL Creatinine 2.11 H (0.66-1.25) mg/dL TIBC (228-460) ug/dL % Saturation (15.00-50.00) Total Protein (6.3-8.2) g/dL Albumin (3.5-5.0) g/dL 11/15/19 11/15/19 11/16/19 Range/Units 11:36 14:53 05:52 WBC 12.0 H (3.8-10.6) k/uL RBC 3.14 L 2.67 L (4.30-5.90) m/uL Hgb 10.0 L 8.5 L D (13.0-17.5) gm/dL Hct 30.7 L 26.1 L (39.0-53.0) % Neutrophils # 8.8 H (1.3-7.7) k/uL Retic Count 2.7 H (0.5-2.0) % APTT (22.0-30.0) sec Chloride (98-107) mmol/L BUN (9-20) mg/dL Creatinine (0.66-1.25) mg/dL TIBC 223 L (228-460) ug/dL % Saturation 63.68 H (15.00-50.00) Total Protein (6.3-8.2) g/dL Albumin (3.5-5.0) g/dL 11/16/19 Range/Units 05:52 WBC (3.8-10.6) k/uL RBC (4.30-5.90) m/uL Hgb (13.0-17.5) gm/dL Hct (39.0-53.0) % Neutrophils # (1.3-7.7) k/uL Retic Count (0.5-2.0) % APTT (22.0-30.0) sec Chloride 108 H (98-107) mmol/L BUN 53 H (9-20) mg/dL Creatinine 2.08 H (0.66-1.25) mg/dL TIBC (228-460) ug/dL % Saturation (15.00-50.00) Total Protein 6.0 L (6.3-8.2) g/dL Albumin 3.0 L (3.5-5.0) g/dL Assessment and Plan Plan: 1 acute GI bleed secondary to duodenitis, esophageal ulcer. Continue Protonix 40 mg twice daily, avoid nonsteroidal anti-inflammatory drugs, Carafate 3 times daily. 2 acute blood loss anemia, hemoglobin stable. Repeat CBC in the morning. 3 significant shortness of breath: Most likely will has been worsening with his anemia continue to correct his anemia and GI bleed continue to treat patient patient be seeing cardiology in consultation. 4 acute kidney injury with chronic kidney disease: Patient is a stage III chronic kidney disease with acute kidney injury with the current GI bleed and volume loss specially with the increase the urine continue mild hydration repeat CMP daily. 5 CAD post [place] post PCI and stent placement last one was in 2009 has been seeing cardiology regular basis. 6 Hypertension: Patient is doing well on metoprolol and amlodipine. 7 hyperlipidemia: Has been on statin resume medication. 8 Alzheimer disease: Continue patient on donepezil 10 mg daily at bedtime. 9 DVT prophylaxis: Patient will have DEANGELO hose and Venodyne boots. 10 prophylaxis: Will continue patient on pantoprazole PO. CODE STATUS: Full code. Discharge plan: Home tomorrow Impression and plan of care have been directed as dictated by the signing physician. Angela Dumont nurse practitioner acting as scribe for signing physician.
[2019-11-16] MEDS: PANTOPRAZOLE 40 MG/10 ML VIAL IVP SCH (15:52)
[2019-11-16] MEDS: PANTOPRAZOLE 40 MG TABLET PO SCH (16:45)
--- NOTE | 2019-11-16 19:35 | ECHOF ---
Referral Reason:sob MEASUREMENTS -------- HEIGHT: 182.9 cm WEIGHT: 106.1 kg BP: RVIDd: 2.6 cm (< 3.3) IVSd: 1.4 cm (0.6 - 1.1) LVIDd: 3.2 cm (3.9 - 5.3) LVPWd: 1.4 cm (0.6 - 1.1) IVSs: 1.9 cm LVIDs: 2.1 cm LVPWs: 1.8 cm Ao Diam: 3.2 cm (2.0 - 3.7) AV Cusp: 2.0 cm (1.5 - 2.6) LA Diam: 3.6 cm (2.7 - 3.8) MV EXCURSION: 14.230 mm (> 18.000) MV EF SLOPE: 34 mm/s (70 - 150) EPSS: 0.6 cm MV E Shaheen: 0.81 m/s MV DecT: 159 ms MV A Shaheen: 0.86 m/s MV E/A Ratio: 0.94 RAP: 5.00 mmHg RVSP: 12.32 mmHg FINDINGS -------- Sinus rhythm. This was a technically difficult study with suboptimal views. The left ventricular size is normal. There is moderate concentric left ventricular hypertrophy. O verall left ventricular systolic function is low-normal with, an EF between 50 - 55 %. The right ventricle is normal in size. The left atrium was not well visualized. The right atrium was not well visualized. xx ml of Lumason was utilized for enhancement of images. The aortic valve is trileaflet and appears structurally normal. The mitral valve is normal. The mitral valve leaflets are mildly thickened. There is trace mitral regurgitation. The tricuspid valve appears structurally normal. Trace tricuspid regurgitation present. Right bernice tricular systolic pressure is normal at < 35 mmHg. The pulmonic valve was not well visualized. The aortic root size is normal. There is no pericardial effusion. CONCLUSIONS -------- 1. Sinus rhythm. 2. This was a technically difficult study with suboptimal views. 3. The left ventricular size is normal. 4. There is moderate concentric left ventricular hypertrophy. 5. Overall left ventricular systolic function is low-normal with, an EF between 50 - 55 %. 6. The right ventricle is normal in size. 7. The left atrium was not well visualized. 8. The right atrium was not well visualized. 9. xx ml of Lumason was utilized for enhancement of images. 10. The aortic valve is trileaflet and appears structurally normal. 11. The mitral valve is normal. 12. The mitral valve leaflets are mildly thickened. 13. There is trace mitral regurgitation. 14. The tricuspid valve appears structurally normal. 15. Trace tricuspid regurgitation present. 16. Right ventricular systolic pressure is normal at < 35 mmHg. 17. The pulmonic valve was not well visualized. 18. The aortic root size is normal. 19. There is no pericardial effusion. DENIER CONTROL OPERATOR: Jailene Rojas RDCS
[2019-11-16] MEDS: DONEPEZIL 10 MG TAB PO SCH (20:09)
[2019-11-17] MEDS: SUCRALFATE 1 GM TAB PO SCH (06:22)
[2019-11-17] MEDS: PANTOPRAZOLE 40 MG TABLET PO SCH (06:22)
[2019-11-17 06:50] LABS: Basophils % (A) 0 %; Eosinophils # (A) 0.3 k/uL (0-0.7); Eosinophils % (A) 3 %; HCT 26.5 % (39.0-53.0); HGB 8.7 gm/dL (13.0-17.5); Lymphocytes # (A) 2.5 k/uL (1.0-4.8); Lymphocytes % (A) 27 %; MCH 32.4 pg (25.0-35.0); MCHC 32.7 g/dL (31.0-37.0); MCV 99.1 fL (80.0-100.0); Mean Platelet Volume 8.2; Monocytes # (A) 0.6 k/uL (0-1.0); Monocytes % (A) 7 %; Neutrophils # (A) 5.7 k/uL (1.3-7.7); Neutrophils % (A) 61 %; Platelet Count 195 k/uL (150-450); RBC 2.67 m/uL (4.30-5.90); WBC 9.3 k/uL (3.8-10.6)
[2019-11-17 07:44] VITALS: BP 135/85; PULSE 91; TEMP 98.5
[2019-11-17] MEDS: amLODIPine 2.5 MG TAB PO SCH (08:45)
[2019-11-17] MEDS: PYRIDOXINE 50 MG TAB PO SCH (08:46)
[2019-11-17] MEDS: METOPROLOL TARTRATE 25 MG TAB PO SCH (08:46)
[2019-11-17 10:03] VITALS: RESP 16
--- NOTE | 2019-11-17 15:16 | P.DS ---
Providers Date of admission: 11/15/19 13:07 Expected date of discharge: 11/17/19 Attending physician: Carroll Carrillo Consults: 11/15/19 13:07 Consult Physician Urgent Consulting Provider: Valentin Bhagat Consult Reason/Comments: GI bleed Do you want consulting provider notified?: Yes 11/15/19 18:05 Consult Physician Routine Consulting Provider: Puma Kaiser Consult Reason/Comments: SOB Do you want consulting provider notified?: Yes Primary care physician: [facility] Course: 84-year-old male one of my office patient with known for long time with past medical history of CAD post DE few years ago who seen Dr. batista on regular basis was on to have history of hypertension hyperlipidemia and obstructive sleep apnea who also was diagnosed with Alzheimer disease this past year has been on medication and doing slightly but better. Patient started complaining to his about having shortness of breath with the exertion become much worse the last 3 days this morning he was post to come to the office for evaluation but he felt very bad ask his to bring him to [facility]. Apparently has been having black stool and tarry stool for the last 24 hours at [facility] department found to have hemoglobin of 10 g with positive Hemoccult and mild gastritis. Patient now was started on pantoprazole IV start on IV fluid consult gastroenterology Will admit patient to the hospital for the above problem. 11/16: Patient underwent EGD that found nonbleeding esophageal ulcer without high risk stigmata for rebleeding, biopsied. Mild duodenitis, biopsy, hiatal hernia, biopsies of antrum and body. Recommendations were Protonix 40 mg twice daily, avoid nonsteroidal anti-inflammatory drugs and add Carafate 3 times daily before meals and at bedtime. No plan for further endoscopy. Repeat blood work reveals hemoglobin of 8.5, BUN 53 and creatinine 2.08. Patient has been afebrile, heart rate 97, blood pressure 115/79, pulse ox 95% on room air. Anticipate possible discharge tomorrow. Patient will be transferred to [facility] floor without telemetry. IV will be discontinued. Echocardiogram is pending. 11/17: Repeat hemoglobin is at 8.7. Patient denies any abdominal pain, he is anxious to be discharged home. GI has cleared the patient her discharge and to continue Protonix and Carafate at home. Patient will be discharged home today in stable condition. Discharge diagnoses: 1 acute GI bleed secondary to duodenitis, esophageal ulcer. 2 acute blood loss anemia, hemoglobin stable. 3 significant shortness of breath due to anemia. 4 acute kidney injury with chronic kidney disease stage III 5 CAD post DE post PCI and stent placement last one was in 2009 6 Hypertension 7 hyperlipidemia 8 Alzheimer disease Discharge plan: Home Impression and plan of care have been directed as dictated by the signing physician. Angela Dumont nurse practitioner acting as scribe for signing physician. Patient Condition at Discharge: Good Plan - Discharge Summary New Discharge Prescriptions: New Sucralfate [Carafate] 1 gm PO ACHS #120 tab Pantoprazole [Protonix] 40 mg PO AC-BID #60 tablet. Continue Pyridoxine [Vitamin B-6] 100 mg PO DAILY Metoprolol Tartrate 25 mg PO BID Multivit-Min/FA/Lycopen/Lutein [Centrum Silver Men Tablet] 1 tab PO DAILY amLODIPine [Norvasc] 2.5 mg PO DAILY Donepezil [Aricept] 10 mg PO Prostate Health Vitamin 1 tab PO DAILY Discharge Medication List Metoprolol Tartrate 25 mg PO BID 11/27/15 [History] Pyridoxine [Vitamin B-6] 100 mg PO DAILY 11/27/15 [History] Donepezil [Aricept] 10 mg PO HS 11/15/19 [History] Multivit-Min/FA/Lycopen/Lutein [Centrum Silver Men Tablet] 1 tab PO DAILY 11/15/19 [History] Prostate Health Vitamin 1 tab PO DAILY 11/15/19 [History] amLODIPine [Norvasc] 2.5 mg PO DAILY 11/15/19 [History] Pantoprazole [Protonix] 40 mg PO AC-BID #60 tablet. 11/17/19 [Rx] Sucralfate [Carafate] 1 gm PO ACHS #120 tab 11/17/19 [Rx] Follow up Appointment(s)/Referral(s): Puma Kaiser MD [Family Provider] - 12/07/19 10:00 am (Friday) Carroll Carrillo MD [Primary Care Provider] - 1 Week (Spoke to dental receptionist. Office will call with appointment time) Valentin Bhagat MD [STAFF PHYSICIAN] - 12/09/19 4:30 pm () Discharge Disposition: HOME SELF-CARE
== END 2019-11-17 10:41 | disposition home or self-care (01) ==
LOC: EC 10:42 → 3SCARD 13:07
PROVIDERS: ADMIT Internal Medicine Geriatric Medicine; ATTEND Internal Medicine Geriatric Medicine
DX: K29.80 Duodenitis without bleeding (principal); K22.10 Ulcer of esophagus without bleeding; K29.50 Unspecified chronic gastritis without bleeding; K44.9 Diaphragmatic hernia without obstruction or gangrene; D62 Acute posthemorrhagic anemia; I12.9 Hypertensive chronic kidney disease with stage 1 through stage 4 chronic kidney disease, or unspecified chronic kidney disease; N17.9 Acute kidney failure, unspecified; N18.3 Chronic kidney disease, stage 3 (moderate); E78.5 Hyperlipidemia, unspecified; I25.10 Atherosclerotic heart disease of native coronary artery without angina pectoris; Z87.891 Personal history of nicotine dependence; G47.33 Obstructive sleep apnea (adult) (pediatric); Z99.89 Dependence on other enabling machines and devices; K21.9 Gastro-esophageal reflux disease without esophagitis; I25.2 Old myocardial infarction; G30.9 Alzheimer's disease, unspecified; F02.80 Dementia in other diseases classified elsewhere, unspecified severity, without behavioral disturbance, psychotic disturbance, mood disturbance, and anxiety; Z98.890 Other specified postprocedural states; Z80.0 Family history of malignant neoplasm of digestive organs; Z80.3 Family history of malignant neoplasm of breast; Z86.010 Personal history of colon polyps; Z79.82 Long term (current) use of aspirin; Z79.899 Other long term (current) drug therapy; Z88.8 Allergy status to other drugs, medicaments and biological substances; Z95.5 Presence of coronary angioplasty implant and graft; Z82.49 Family history of ischemic heart disease and other diseases of the circulatory system
CPT/HCPCS: 96376; 96374; 99285; 36415; 93005; 88305; 83880; 80053 ×2; 82607; 82728; 82746; 83540; 83550; 83605; 83735; 84484; 85025 ×3; 85610; 85045; 85730; 82272; 71046; 43239; G0378 ×3; C8929; J2001; J2704; C9113; Q9950; 93306

== ENCOUNTER 2020-04-07 20:58 | Inpatient (IN) | payer MEDICARE, BC ==
--- NOTE | 2020-04-07 21:51 | ED ---
General Adult HPI - General Chief complaint: Extremity Problem,Nontraumatic Stated complaint: RT leg swelling Time Seen by Provider: 04/07/20 21:16 Source: patient, RN notes reviewed, old records reviewed Mode of arrival: wheelchair Limitations: no limitations - History of Present Illness Initial comments: 85-year-old male presenting for evaluation of right lower extremity pain and swelling. Patient has had 3 days of pain in the posterior aspect of the right knee. Denies any trauma or recent falls. Denies fever or chills. Denies any constitutional symptoms. Denies chest pain or difficulty breathing. No history of DVT or PE. - Related Data Home Medications Medication Instructions Recorded Confirmed Metoprolol Tartrate 25 mg PO BID 11/27/15 04/07/20 Pyridoxine [Vitamin B-6] 50 mg PO DAILY 11/27/15 04/07/20 Multivit-Min/FA/Lycopen/Lutein 1 tab PO DAILY 11/15/19 04/07/20 [Centrum Silver Men Tablet] amLODIPine [Norvasc] 2.5 mg PO DAILY 11/15/19 04/07/20 Aspirin [[place] Aspirin EC] 81 mg PO DAILY 04/07/20 04/07/20 Bisacodyl [Dulcolax] 5 mg PO Q48H 04/07/20 04/07/20 Super Beta Prostate P3 1 tab PO DAILY 04/07/20 04/07/20 Previous Rx's Medication Instructions Recorded Pantoprazole [Protonix] 40 mg PO AC-BID #60 tablet. 11/17/19 Allergies Allergy/AdvReac Type Severity Reaction Status Date / Time fluticasone propionate AdvReac "prescription Verified 04/07/20 22:30 [From Flonase] strength gave me double vision" lisinopril AdvReac Cough Verified 04/07/20 22:30 Review of Systems ROS Statement: Those systems with pertinent positive or pertinent negative responses have been documented in the HPI. ROS Other: All systems not noted in ROS Statement are negative. Past Medical History Past Medical History: GERD/Reflux, Hypertension, Myocardial Infarction (MT), Sleep Apnea/CPAP/BIPAP Additional Past Medical History / Comment(s): HAVING LT LOWER ABD QUAD PAIN AND CONSTIPATION, dementia Last Myocardial Infarction Date:: SEP 2010 History of Any Multi-Drug Resistant Organisms: None Reported Past Surgical History: Heart Catheterization With Stent, Tonsillectomy Additional Past Surgical History / Comment(s): HEART STENT X 2 Past Anesthesia/Blood Transfusion Reactions: No Reported Reaction Additional Past Anesthesia/Blood Transfusion Reaction / Comment(s): NEVER HAS HAD BLOOD TRANSFUSION Date of Last Stent Placement:: 2009 Past Psychological History: No Psychological Hx Reported Smoking Status: Former smoker Past Alcohol Use History: None Reported Past Drug Use History: None Reported - Past Family History Mother Family Medical History: Chest Pain / Angina Father Family Medical History: Cancer Additional Family Medical History / Comment(s): PROSTATE Brother(s) Family Medical History: Cancer, Myocardial Infarction (MT) Additional Family Medical History / Comment(s): COLON CA General Exam Limitations: no limitations General appearance: alert, in no apparent distress Head exam: Present: atraumatic, normocephalic Eye exam: Present: normal appearance, PERRL Neck exam: Present: normal inspection. Absent: tenderness, meningismus Respiratory exam: Present: normal lung sounds bilaterally. Absent: respiratory distress, wheezes Cardiovascular Exam: Present: regular rate, normal rhythm GI/Abdominal exam: Present: soft. Absent: distended, tenderness, guarding Extremities exam: Present: tenderness, pedal edema, calf tenderness (Significant swelling of the right lower extremity compared to the left, warm, normal cap refill) Neurological exam: Present: alert, oriented X3, CN II-XII intact. Absent: motor sensory deficit Psychiatric exam: Present: normal affect, normal mood Skin exam: Present: warm, dry, intact. Absent: cyanosis, diaphoretic Course Vital Signs 04/07/20 21:03 Temperature 98.8 F Pulse Rate 101 H Respiratory 20 Rate Blood Pressure 156/84 O2 Sat by Pulse 95 Oximetry Medical Decision Making - Medical Decision Making 85-year-old male with extensive right lower extremity swelling. Ultrasound is obtained, positive for DVT. DVT is extensive, into the external iliac. Laboratory studies obtained, hemoglobin is 9.5, this appears chronic for this patient. He denies any rectal bleeding or melena. Creatinine 2.17 which is also baseline for this patient. He started on heparin. Case is discussed with Dr. Carrillo who will admit. Vascular placed on consult. - Lab Data Result diagrams: 04/07/20 22:14 04/07/20 22:14 Lab Results 04/07/20 04/07/20 04/07/20 Range/Units 22:14 22:14 22:14 WBC 10.8 H (3.8-10.6) k/uL RBC 3.34 L (4.30-5.90) m/uL Hgb 9.5 L (13.0-17.5) gm/dL Hct 30.0 L (39.0-53.0) % MCV 89.8 (80.0-100.0) fL MCH 28.3 (25.0-35.0) pg MCHC 31.5 (31.0-37.0) g/dL RDW 15.7 H (11.5-15.5) % Plt Count 200 (150-450) k/uL Neutrophils % 68 % Lymphocytes % 15 % Monocytes % 9 % Eosinophils % 4 % Basophils % 1 % Neutrophils # 7.4 (1.3-7.7) k/uL Lymphocytes # 1.6 (1.0-4.8) k/uL Monocytes # 0.9 (0-1.0) k/uL Eosinophils # 0.4 (0-0.7) k/uL Basophils # 0.1 (0-0.2) k/uL Hypochromasia Moderate PT 11.0 (9.0-12.0) sec INR 1.1 (<1.2) APTT 21.6 L (22.0-30.0) sec Sodium 136 L (137-145) mmol/L Potassium 4.9 (3.5-5.1) mmol/L Chloride 108 H (98-107) mmol/L Carbon Dioxide 20 L (22-30) mmol/L Anion Gap 8 mmol/L BUN 33 H (9-20) mg/dL Creatinine 2.17 H (0.66-1.25) mg/dL Est GFR (CKD-EPI)AfAm 31 (>60 ml/min/1.73 sqM) Est GFR (CKD-EPI)NonAf 27 (>60 ml/min/1.73 sqM) Glucose 99 (74-99) mg/dL Calcium 9.3 (8.4-10.2) mg/dL Disposition Clinical Impression: Deep vein thrombosis (DVT) of lower extremity Disposition: ADMITTED IP TO THIS HOSP Condition: Stable Is patient prescribed a controlled substance at d/c from ED?: No Referrals: Carroll Carrillo MD [Primary Care Provider] - 1-2 days Decision to Admit Reason: Admit from EC Decision Date: 04/07/20 Decision Time: 22:56
--- NOTE | 2020-04-07 22:06 | US ---
EXAMINATION TYPE: US venous doppler duplex LE RT DATE OF EXAM: 04/07/2020 9:21 PM COMPARISON: NONE CLINICAL HISTORY: 85-year-old male pain and swelling. Right leg pain and swelling x couple days, bruce ent taking baby aspirin SIDE PERFORMED: Right TECHNIQUE: The lower extremity deep venous system is examined utilizing real time linear array sonog todd with graded compression, doppler sonography and color-flow sonography. FINDINGS: VESSELS IMAGED: External Iliac Vein (EIV) Common Femoral Vein Deep Femoral Vein Greater Saphenous Vein * Femoral Vein Popliteal Vein Small Saphenous Vein * Proximal Calf Veins (* superficial vessels) Right Leg: Positive for DVT: EIV through proximal calf veins IMPRESSION: Exam positive for extensive DVT of the right lower extremity extending from the external iliac vein d own through at least the upper calf veins.
[2020-04-07] MEDS ORDERED: HEPARIN SODIUM,PORCINE 10,000 UNIT/ML 1 ML VIAL IV ONE (22:18)
[2020-04-07] MEDS ORDERED: HEPARIN SODIUM,PORCINE 5,000 UNIT/ML 1 ML VIAL IV PRN (22:18)
[2020-04-07 22:23] LABS: Basophils # (A) 0.1 k/uL (0-0.2); Basophils % (A) 1 %; Eosinophils # (A) 0.4 k/uL (0-0.7); Eosinophils % (A) 4 %; HGB 9.5 gm/dL (13.0-17.5); Hypochromasia Moderate; Lymphocytes # (A) 1.6 k/uL (1.0-4.8); Lymphocytes % (A) 15 %; MCH 28.3 pg (25.0-35.0); MCHC 31.5 g/dL (31.0-37.0); MCV 89.8 fL (80.0-100.0); Mean Platelet Volume 7.8; Monocytes # (A) 0.9 k/uL (0-1.0); Monocytes % (A) 9 %; Neutrophils # (A) 7.4 k/uL (1.3-7.7); Neutrophils % (A) 68 %; Platelet Count 200 k/uL (150-450); RBC 3.34 m/uL (4.30-5.90); RDW 15.7 % (11.5-15.5); WBC 10.8 k/uL (3.8-10.6)
[2020-04-07] MEDS: HEPARIN SOD,PORK IN 0.45% NACL 25,000 UNIT in 0.45% NACL 1 250ML.BAG IV SCH (22:32)
[2020-04-07 22:33] LABS: Calcium 9.3 mg/dL (8.4-10.2); Potassium 4.9 mmol/L (3.5-5.1)
[2020-04-07 22:44] LABS: INR 1.1 (<1.2); Partial Thromboplastin Time 21.6 sec (22.0-30.0)
[2020-04-07] MEDS ORDERED: NALOXONE 0.4 MG/ML 1 ML VIAL IV PRN (22:52)
[2020-04-08] MEDS: SODIUM CHLORIDE 0.9% 1,000 ML IV SCH ×2 (00:40→23:13)
[2020-04-08 04:08] LABS: Basophils # (A) 0.1 k/uL (0-0.2); Basophils % (A) 1 %; Eosinophils # (A) 0.5 k/uL (0-0.7); Eosinophils % (A) 4 %; HGB 9.9 gm/dL (13.0-17.5); Hypochromasia Marked; Lymphocytes # (A) 2.8 k/uL (1.0-4.8); Lymphocytes % (A) 24 %; MCH 28.7 pg (25.0-35.0); MCHC 31.8 g/dL (31.0-37.0); MCV 90.4 fL (80.0-100.0); Mean Platelet Volume 7.7; Monocytes # (A) 0.8 k/uL (0-1.0); Monocytes % (A) 7 %; Neutrophils # (A) 7.3 k/uL (1.3-7.7); Neutrophils % (A) 61 %; Platelet Count 208 k/uL (150-450); RBC 3.43 m/uL (4.30-5.90); RDW 15.7 % (11.5-15.5); WBC 11.9 k/uL (3.8-10.6)
[2020-04-08] MEDS: PANTOPRAZOLE 40 MG TABLET PO SCH ×2 (06:19→17:34)
[2020-04-08] MEDS: amLODIPine 2.5 MG TAB PO SCH (08:23)
[2020-04-08] MEDS: MULTIVITAMINS, THERA 1 EACH TAB PO SCH (08:23)
[2020-04-08] MEDS: PYRIDOXINE 50 MG TAB PO SCH (08:23)
[2020-04-08] MEDS: METOPROLOL TARTRATE 25 MG TAB PO SCH ×2 (08:23→19:45)
[2020-04-08] MEDS ORDERED: ASPIRIN 81 MG PO SCH (09:00)
[2020-04-08] MEDS ORDERED: [UNRECOGNIZED DRUG - OTHER] PO SCH (09:00)
--- NOTE | 2020-04-08 11:10 | P.HPIM ---
History of Present Illness H&P Date: 04/08/20 Chief Complaint: Right lower extremity leg pain and edema, proximal DVT This is an 85-year-old pleasant gentleman, patient of Dr. Carrillo who presented to the emergency room for evaluation of right lower extremity pain and swelling. With past medical history significant for CAD post DC a few years ago who sees Dr. batista on on a regular basis, hypertension, hyperlipidemia, obstructive sleep apnea, diagnosed with Alzheimer's this past year. Patient was on anticoagulants but due to GI bleed in October the anticoagulant was stopped. Patient stated that he noticed pain and difficulty walking approximately 5 days ago. His leg became edematous. About 3 days ago he considered calling the office however chose not to. Yesterday patient and daughter convinced him to go to the emergency room for evaluation pain has now focused to posterior right knee. Patient denies any trauma or recent falls. Patient denies any chest pain or difficulty breathing. Denies any cough fever or chills. No history of DVT or PE in the past. At this time patient is resting comfortably in bed. He is aware where he has been able to answer questions appropriately. Patient does have episodes of confusion which come and go. Patient continues to have edema redness and pain to the right lower extremity. Venous Doppler showed positive DVT E IV through proximal calf veins. WC 11.9, hemoglobin 9.9, platelets 208, potassium 4.9, BUN 33, creatinine 2.17 Review of Systems Review Of Systems: Constitutional: No fever, no chills, no night sweats. No weight change. No weakness, fatigue or lethargy. No daytime sleepiness. EENT: No headache. No blurred vision or double vision, no loss of vision. No loss of Hearing, no ringing in the ears, no dizziness. No nasal drainage or congestion. No epistaxis. No sore throat. Lungs: No shortness of breath, cough, no sputum production. No wheezing. Cardiovascular: No chest pain, no lower extremity edema. No palpitations. No paroxysmal nocturnal dyspnea. No orthopnea. No lightheadedness or dizziness. No syncopal episodes. Abdominal: no abdominal discomfort. No nausea, vomiting. no diarrhea. No constipation. No bloody or tarry stools. no loss of appetite. Genitourinary: No dysuria, increased frequency, urgency. No urinary retention. Musculoskeletal: Reports edema, reports right lower extremity pain, reports redness to right lower extremity, reports gait dysfunction No myalgias. no frequent falls. No back pain. No neck pain. Integumentary: No wounds, no lesions. No rash or pruritus. No unusual bruising. No change in hair or nails. Neurologic: No aphasia. No facial droop. No change in mentation. No head injury. No headache. No paralysis. No paresthesia. Psychiatric: No depression. No anxiety. No mood swings. Endocrine: No abnormal blood sugars. No weight change. No excessive sweating or thirst. Past Medical History Past Medical History: Deep Vein Thrombosis (DVT), GERD/Reflux, Hypertension, Myocardial Infarction (DC), Sleep Apnea/CPAP/BIPAP Additional Past Medical History / Comment(s): HAVING LT LOWER ABD QUAD PAIN AND CONSTIPATION, dementia Last Myocardial Infarction Date:: SEP 2010 History of Any Multi-Drug Resistant Organisms: None Reported Past Surgical History: Heart Catheterization With Stent, Tonsillectomy Additional Past Surgical History / Comment(s): HEART STENT X 2 Past Anesthesia/Blood Transfusion Reactions: No Reported Reaction Additional Past Anesthesia/Blood Transfusion Reaction / Comment(s): NEVER HAS HAD BLOOD TRANSFUSION Date of Last Stent Placement:: 2009 Past Psychological History: No Psychological Hx Reported Smoking Status: Former smoker Past Alcohol Use History: None Reported Additional Past Alcohol Use History / Comment(s): QUIT SMOKING , SMOKED APPROX 26 YRS 1PPD Past Drug Use History: None Reported - Past Family History Mother Family Medical History: Chest Pain / Angina Father Family Medical History: Cancer Additional Family Medical History / Comment(s): PROSTATE Brother(s) Family Medical History: Cancer, Myocardial Infarction (DC) Additional Family Medical History / Comment(s): COLON CA Medications and Allergies Home Medications Medication Instructions Recorded Confirmed Type Metoprolol Tartrate 25 mg PO BID 11/27/15 04/07/20 History Pyridoxine [Vitamin B-6] 50 mg PO DAILY 11/27/15 04/07/20 History Multivit-Min/FA/Lycopen/Lutein 1 tab PO DAILY 11/15/19 04/07/20 History [Centrum Silver Men Tablet] amLODIPine [Norvasc] 2.5 mg PO DAILY 11/15/19 04/07/20 History Pantoprazole [Protonix] 40 mg PO AC-BID #60 tablet. 11/17/19 04/07/20 Rx Aspirin [[place] Aspirin EC] 81 mg PO DAILY 04/07/20 04/07/20 History Bisacodyl [Dulcolax] 5 mg PO Q48H 04/07/20 04/07/20 History Super Beta Prostate P3 1 tab PO DAILY 04/07/20 04/07/20 History Allergies Allergy/AdvReac Type Severity Reaction Status Date / Time fluticasone propionate AdvReac "prescription Verified 04/07/20 22:30 [From Flonase] strength gave me double vision" lisinopril AdvReac Cough Verified 04/07/20 22:30 Physical Exam Vitals: Vital Signs Temp Pulse Pulse Resp BP BP Pulse Ox 04/08/20 08:00 97.7 F 100 18 155/90 96 04/08/20 04:00 98.5 F 83 18 128/69 95 04/08/20 00:00 98 F 84 18 130/76 95 04/07/20 23:04 98.1 F 80 16 140/97 95 04/07/20 21:03 98.8 F 101 H 20 156/84 95 Intake and Output 04/07/20 04/08/20 04/08/20 22:59 06:59 14:59 Intake Total 111.065 240 Output Total 525 Balance -413.935 240 Intake: Intake, IV Titration 111.065 Amount Heparin Sod,Pork in 0.45% 111.065 NaCl 25,000 unit In 0.45 % NaCl 1 250ml.bag @ 18 UNITS/KG/HR 17.962 mls/hr IV .[id number] [facility] Rx#: [id number] Oral 240 Output: Urine 525 Other: Voiding Method Urinal Urinal Weight 99.79 kg 78 kg General Appearance: 85-year-old male sitting up in bed Alert, cooperative, no distress, appears stated age. Neck HEENT: Supple, no lymphadenopathy, no thyroid enlargement, no carotid bruits. Lungs: Clear to auscultation without crackles or wheezes no rhonchi, no deformity. Chest Wall: Chest wall normal expansion with deep inspiration no tenderness and no deformity was found on exam, no costochondral pain or discomfort. Heart: Regular rate and rhythm, S1, S2 normal, no murmur, rub or gallop. Back: Symmetric, no curvature, ROM normal, no CVA tenderness. Abdomen: Soft, non-tender, no rebound or rigidity, no hepatosplenomegaly. Extremities: Right lower extremity edematous, warm to touch, erythema, positive Homans sign to the right all other Extremities normal, atraumatic, no cyanosis or edema. Pulses: 2+ and symmetric. Skin: Skin color, texture, tugor normal, no rashes or lesions. Neurologic: Alert oriented x3 cranial nerves II through XII intact, no motor deficit, no abnormal balance or gait, no confusion noted, able to answer questions appropriately Results CBC & Chem 7: 04/08/20 03:46 04/07/20 22:14 Labs: Abnormal Lab Results - Last 24 Hours (Table) 04/07/20 04/07/20 04/07/20 Range/Units 22:14 22:14 22:14 WBC 10.8 H (3.8-10.6) k/uL RBC 3.34 L (4.30-5.90) m/uL Hgb 9.5 L (13.0-17.5) gm/dL Hct 30.0 L (39.0-53.0) % RDW 15.7 H (11.5-15.5) % APTT 21.6 L (22.0-30.0) sec Sodium 136 L (137-145) mmol/L Chloride 108 H (98-107) mmol/L Carbon Dioxide 20 L (22-30) mmol/L BUN 33 H (9-20) mg/dL Creatinine 2.17 H (0.66-1.25) mg/dL 04/08/20 04/08/20 Range/Units 03:46 03:46 WBC 11.9 H (3.8-10.6) k/uL RBC 3.43 L (4.30-5.90) m/uL Hgb 9.9 L (13.0-17.5) gm/dL Hct 31.0 L (39.0-53.0) % RDW 15.7 H (11.5-15.5) % APTT 77.5 H (22.0-30.0) sec Sodium (137-145) mmol/L Chloride (98-107) mmol/L Carbon Dioxide (22-30) mmol/L BUN (9-20) mg/dL Creatinine (0.66-1.25) mg/dL Thrombosis Risk Factor Assmnt - Choose All That Apply Any of the Below Risk Factors Present?: Yes Each Factor Represents 1 point: Obesity (BMI >25), Swollen legs (current) Other Risk Factors: Yes Each Risk Factor Represents 3 Points: Age 75 years or older Other congenital or acquired thrombophilia - If yes, enter type in comment: No Thrombosis Risk Factor Assessment Total Risk Factor Score: 5 Thrombosis Risk Factor Assessment Level: High Risk Assessment and Plan Plan: 1. Deep vein thrombosis possible PE due to elevated kidney function CTA cannot be obtained. Consult for vascular surgeon for possible thrombolytic or thrombectomy, echocardiogram to assess PA pressures. Patient may have a HIDA scan in the next few days if symptoms progress. Continue with heparin drip at this time. Consult cardiology. Hold aspirin at this time, we'll discuss with family possible anticoagulant in the future. Occult blood ordered. 2. Stage III chronic kidney disease continue with mild hydration repeat BMP daily. 3. CAD post DC post-PCI and stent placement last one was 2009, sees cardiology on a regular basis. 4. Hypertension. Continue on amlodipine and metoprolol 5. Hyperlipidemia. Continue on statin 6. Alzheimer's disease. Continue on donepezil 10 mg daily at bedtime 7. DVT prophylaxis. Continue with heparin drip 8. GI prophylaxis. Protonix 40 mg by mouth twice a day 9. Covid 19 pending CODE STATUS: Full code Discharge plan: Admit to inpatient status for minimal of 2 nights, home Impression and plan of care have been directed as dictated by the signing physician. Catherine Barnes nurse practitioner acting as scribe for signing physician.
[2020-04-08] MEDS: ACETAMINOPHEN TAB 325 MG TAB PO PRN (11:56)
[2020-04-08] MEDS: HEPARIN SOD,PORK IN 0.45% NACL 25,000 UNIT in 0.45% NACL 1 250ML.BAG IV SCH (12:35)
--- NOTE | 2020-04-08 13:38 | P.CRDCN ---
History of Present Illness Consult date: 04/08/20 History of present illness: History of present illness: This is an 85-year-old gentleman who follows with Dr. Kaiser in the office. He has a known history of hypertension, hyperlipidemia, coronary artery disease with prior stenting of the RCA in 2010, chronic kidney disease, he is a nonsmoker. He had a recent hospitalization for acute blood loss anemia secondary to duodenitis and esophageal ulcer. Patient presents to the hospital on this occasion with complaints of swelling to the right lower extremity. He had onset of pain and swelling when he woke up one morning about 3-4 days ago. He denies any travel or sedentary/bedrest. He denies having any shortness of breath, difficulty deep breathing or cough, fever or chills. Patient came into [facility] emergency center for evaluation and ultrasound of the right lower extremity was positive for DVT extending from the iliac vein to the upper calf vein. Patient was started on a heparin drip and consult is in place with vascular surgery. His hemoglobin this morning is at 9.9 and stool for occult blood to be obtained. BUN is 33 creatinine 2.17, sodium 136, potassium 34.9, chloride 108, CO2 20. Review Of Systems: Constitutional: No fever, no chills. No weakness, fatigue or lethargy. EENT: No headache. No blurred vision or double vision, no loss of vision. No loss of Hearing, no dizziness. No nasal drainage or congestion. No epistaxis. No sore throat. Lungs: No shortness of breath, cough, no sputum production. No wheezing. Cardiovascular: No chest pain, no lower extremity edema. No palpitations. No paroxysmal nocturnal dyspnea. No orthopnea. No lightheadedness or dizziness. No syncopal episodes. Abdominal: No abdominal pain. No nausea, vomiting. No diarrhea. No constipation. No bloody or tarry stools. No loss of appetite. Genitourinary: No dysuria, increased frequency, urgency. No urinary retention. Musculoskeletal: No myalgias. No muscle weakness, no gait dysfunction, no frequent falls. Reports redness and swelling to the right lower extremity. Integumentary: No wounds. No rash or pruritus. No unusual bruising. Neurologic: No aphasia. No facial droop. No change in mentation. No head injury. No headache. No paralysis. No paresthesia. Psychiatric: No depression. No anxiety. Endocrine: No abnormal blood sugars. Physical examination: Gen: This is an 85-year-old male. He is resting in bed appears to be comfortable and in no acute distress. VS: Afebrile, heart rate 100, blood pressure 155/90, pulse ox 96% on room air. HEENT: Head is atraumatic, normocephalic. Pupils equal, round. Sclerae is anicteric. NECK: Supple. No JVD. No lymphadenopathy. No thyromegaly. LUNGS: Clear to auscultation. No wheezes or rhonchi. No intercostal retractions. HEART: Regular rate and rhythm. Systolic murmur. ABDOMEN: Soft. Bowel sounds are present. No masses. No tenderness. EXTREMITIES: Edema to the right lower extremity with mild warmth to touch compared to left. No calf tenderness. NEUROLOGICAL: Patient is awake, alert and oriented x3. Cranial nerves 2 through 12 are grossly intact. Assessment: Extensive DVT right lower extremity History of acute GI bleed secondary to esophageal ulcer in October Hypertension Hyperlipidemia Coronary artery disease status post stent of the RCA in 2010 Chronic kidney disease 3 Alzheimer's disease Plan: Continue heparin drip Obtain stool for occult blood Monitor hemoglobin closely Await consult with vascular surgery. Patient may require oral anticoagulation despite history of GI bleed Further recommendations to follow based upon clinical course Thank you kindly for this consultation Nurse practitioner note has been reviewed, I agree with documented findings and plan of care. Patient was seen and examined. Past Medical History Past Medical History: Deep Vein Thrombosis (DVT), GERD/Reflux, Hypertension, Myocardial Infarction ([place]), Sleep Apnea/CPAP/BIPAP Additional Past Medical History / Comment(s): HAVING LT LOWER ABD QUAD PAIN AND CONSTIPATION, dementia Last Myocardial Infarction Date:: SEP 2010 History of Any Multi-Drug Resistant Organisms: None Reported Past Surgical History: Heart Catheterization With Stent, Tonsillectomy Additional Past Surgical History / Comment(s): HEART STENT X 2 Past Anesthesia/Blood Transfusion Reactions: No Reported Reaction Additional Past Anesthesia/Blood Transfusion Reaction / Comment(s): NEVER HAS HAD BLOOD TRANSFUSION Date of Last Stent Placement:: 2009 Past Psychological History: No Psychological Hx Reported Smoking Status: Former smoker Past Alcohol Use History: None Reported Additional Past Alcohol Use History / Comment(s): QUIT SMOKING , SMOKED APPROX 26 YRS 1PPD Past Drug Use History: None Reported - Past Family History Mother Family Medical History: Chest Pain / Angina Father Family Medical History: Cancer Additional Family Medical History / Comment(s): PROSTATE Brother(s) Family Medical History: Cancer, Myocardial Infarction ([place]) Additional Family Medical History / Comment(s): COLON CA Medications and Allergies Home Medications Medication Instructions Recorded Confirmed Type Metoprolol Tartrate 25 mg PO BID 11/27/15 04/07/20 History Pyridoxine [Vitamin B-6] 50 mg PO DAILY 11/27/15 04/07/20 History Multivit-Min/FA/Lycopen/Lutein 1 tab PO DAILY 11/15/19 04/07/20 History [Centrum Silver Men Tablet] amLODIPine [Norvasc] 2.5 mg PO DAILY 11/15/19 04/07/20 History Pantoprazole [Protonix] 40 mg PO AC-BID #60 tablet. 11/17/19 04/07/20 Rx Aspirin [[place] Aspirin EC] 81 mg PO DAILY 04/07/20 04/07/20 History Bisacodyl [Dulcolax] 5 mg PO Q48H 04/07/20 04/07/20 History Super Beta Prostate P3 1 tab PO DAILY 04/07/20 04/07/20 History Allergies Allergy/AdvReac Type Severity Reaction Status Date / Time fluticasone propionate AdvReac "prescription Verified 04/07/20 22:30 [From Flonase] strength gave me double vision" lisinopril AdvReac Cough Verified 04/07/20 22:30 Physical Exam Vitals: Vital Signs Temp Pulse Pulse Resp BP BP Pulse Ox 04/08/20 08:00 97.7 F 100 18 155/90 96 04/08/20 04:00 98.5 F 83 18 128/69 95 04/08/20 00:00 98 F 84 18 130/76 95 04/07/20 23:04 98.1 F 80 16 140/97 95 04/07/20 21:03 98.8 F 101 H 20 156/84 95 Intake and Output 04/07/20 04/08/20 04/08/20 22:59 06:59 14:59 Intake Total 111.065 Output Total 525 Balance -413.935 Intake: Intake, IV Titration 111.065 Amount Heparin Sod,Pork in 0.45% 111.065 NaCl 25,000 unit In 0.45 % NaCl 1 250ml.bag @ 18 UNITS/KG/HR 17.962 mls/hr IV .[id number] [facility] Rx#: [id number] Output: Urine 525 Other: Voiding Method Urinal Urinal Weight 99.79 kg 78 kg Results 04/08/20 03:46 04/07/20 22:14 Coagulation 04/07/20 04/08/20 Range/Units 22:14 03:46 PT 11.0 (9.0-12.0) sec APTT 21.6 L 77.5 H (22.0-30.0) sec CBC 04/07/20 04/08/20 Range/Units 22:14 03:46 WBC 10.8 H 11.9 H (3.8-10.6) k/uL RBC 3.34 L 3.43 L (4.30-5.90) m/uL Hgb 9.5 L 9.9 L (13.0-17.5) gm/dL Hct 30.0 L 31.0 L (39.0-53.0) % Plt Count 200 208 (150-450) k/uL Comprehensive Metabolic Panel 04/07/20 Range/Units 22:14 Sodium 136 L (137-145) mmol/L Potassium 4.9 (3.5-5.1) mmol/L Chloride 108 H (98-107) mmol/L Carbon Dioxide 20 L (22-30) mmol/L BUN 33 H (9-20) mg/dL Creatinine 2.17 H (0.66-1.25) mg/dL Glucose 99 (74-99) mg/dL Calcium 9.3 (8.4-10.2) mg/dL Current Medications Generic Name Dose Route Start Last Admin Trade Name Freq PRN Reason Stop Dose Admin Amlodipine Besylate 2.5 mg 04/08/20 09:00 04/08/20 08:23 Norvasc PO 2.5 mg DAILY OC Administration Bisacodyl 5 mg 04/09/20 09:00 Dulcolax PO Q48H [facility] Heparin Sodium (Porcine) 0 unit 04/07/20 22:18 Heparin IV PER PROTOCOL PRN Low PTT Protocol Heparin Sodium/Sodium Chloride 250 mls @ 17.962 mls/hr 04/07/20 22:30 04/08/20 04:43 25,000 unit/ Sodium Chloride IV 16 units/kg/hr .[id number] OC 15.966 mls/hr Titration Protocol 18 UNITS/KG/HR Sodium Chloride 1,000 mls @ 20 mls/hr 04/07/20 23:00 04/08/20 00:40 Saline 0.9% IV Not Given .Q24H OC Metoprolol Tartrate 25 mg 04/08/20 09:00 04/08/20 08:23 Lopressor PO 25 mg BID OC Administration Multivitamins 1 each 04/08/20 09:00 04/08/20 08:23 Theragran PO 1 each DAILY OC Administration Naloxone HCl 0.2 mg 04/07/20 22:52 Narcan IV Q2M PRN Opioid Reversal Pantoprazole Sodium 40 mg 04/08/20 07:30 04/08/20 06:19 Protonix PO 40 mg AC-BID OC Administration Pyridoxine HCl 50 mg 04/08/20 09:00 04/08/20 08:23 Vitamin B-6 PO 50 mg DAILY OC Administration Intake and Output 04/07/20 04/08/20 04/08/20 22:59 06:59 14:59 Intake Total 111.065 Output Total 525 Balance -413.935 Intake: Intake, IV Titration 111.065 Amount Heparin Sod,Pork in 0.45% 111.065 NaCl 25,000 unit In 0.45 % NaCl 1 250ml.bag @ 18 UNITS/KG/HR 17.962 mls/hr IV .[id number] [facility] Rx#: [id number] Output: Urine 525 Other: Voiding Method Urinal Urinal Weight 99.79 kg 78 kg 04/08/20 03:46 04/07/20 22:14
--- NOTE | 2020-04-08 13:53 | P.GSCN ---
History of Present Illness Consult date: 04/08/20 Reason for Consult: Deep venous thrombosis right lower extremity History of present illness: Patient is a 85-year-old male who was admitted yesterday to the hospital after presenting with a chief complaint of right lower extremity edema. The edema had been present for approximately 4-5 days. Initially he experienced some discomfort however this resolved with time and the patient admitted almost not coming to the hospital for evaluation. Via the emergency room venous duplex of the right lower extremity was performed which demonstrated extensive acute deep venous thrombosis of the right femoral and popliteal segments with some extensi on of the thrombus above the visualized portion of the femoral vein/distal external iliac vein. The patient denies any previous history of deep venous thrombosis. There is no family history of hypercoagulable syndrome or other hematologic issue. He denies any trauma. There is no shortness of breath. The patient recently underwent upper endoscopy which demonstrated Ramos's esophagitis. Impression: #1: Extensive right femoral and possible iliac acute deep venous thrombosis was secondary leg edema. #2: Anemia of undetermined etiology. #3: History of coronary artery disease, status post cardiac catheterization with balloon dilation and stenting 2. #4: History tobacco use, has quitting tobacco use approximate 45 years prior #5: Renal insufficiency with a creatinine of 2.17. Recommendation: #1: Agree with present therapy of IV heparin. #2: IV fluid administration with following of his renal function in the hope that a computed tomography scan with IV contrast can be administered to rule out the possibility of ileal caval thrombus as well as to evaluate for the possibility of intra-abdominal/pelvic malignancy given his deep venous thrombosis and anemia. #3: Will follow patient along with you during his hospital stay. Past Medical History Past Medical History: Deep Vein Thrombosis (DVT), GERD/Reflux, Hypertension, Myocardial Infarction ([place]), Sleep Apnea/CPAP/BIPAP Additional Past Medical History / Comment(s): HAVING LT LOWER ABD QUAD PAIN AND CONSTIPATION, dementia Last Myocardial Infarction Date:: SEP 2010 History of Any Multi-Drug Resistant Organisms: None Reported Past Surgical History: Heart Catheterization With Stent, Tonsillectomy Additional Past Surgical History / Comment(s): HEART STENT X 2 Past Anesthesia/Blood Transfusion Reactions: No Reported Reaction Additional Past Anesthesia/Blood Transfusion Reaction / Comm: NEVER HAS HAD BLOOD TRANSFUSION Date of Last Stent Placement:: 2009 Past Psychological History: No Psychological Hx Reported Smoking Status: Former smoker Past Alcohol Use History: None Reported Additional Past Alcohol Use History / Comment(s): QUIT SMOKING 1969'S, SMOKED APPROX 26 YRS 1PPD Past Drug Use History: None Reported - Past Family History Mother Family Medical History: Chest Pain / Angina Father Family Medical History: Cancer Additional Family Medical History / Comment(s): PROSTATE Brother(s) Family Medical History: Cancer, Myocardial Infarction ([place]) Additional Family Medical History / Comment(s): COLON CA Medications and Allergies Home Medications Medication Instructions Recorded Confirmed Type Metoprolol Tartrate 25 mg PO BID 11/27/15 04/07/20 History Pyridoxine [Vitamin B-6] 50 mg PO DAILY 11/27/15 04/07/20 History Multivit-Min/FA/Lycopen/Lutein 1 tab PO DAILY 11/15/19 04/07/20 History [Centrum Silver Men Tablet] amLODIPine [Norvasc] 2.5 mg PO DAILY 11/15/19 04/07/20 History Pantoprazole [Protonix] 40 mg PO AC-BID #60 tablet. 11/17/19 04/07/20 Rx Aspirin [[place] Aspirin EC] 81 mg PO DAILY 04/07/20 04/07/20 History Bisacodyl [Dulcolax] 5 mg PO Q48H 04/07/20 04/07/20 History Super Beta Prostate P3 1 tab PO DAILY 04/07/20 04/07/20 History Allergies Allergy/AdvReac Type Severity Reaction Status Date / Time fluticasone propionate AdvReac "prescription Verified 04/07/20 22:30 [From Flonase] strength gave me double vision" lisinopril AdvReac Cough Verified 04/07/20 22:30 Surgical - Exam Osteopathic Statement: *. No significant issues noted on an osteopathic structural exam other than those noted in the History and Physical/Consult. Vital Signs Temp Pulse Resp BP Pulse Ox 98.8 F 101 H 20 156/84 95 04/07/20 21:03 04/07/20 21:03 04/07/20 21:03 04/07/20 21:03 04/07/20 21:03 - General well developed, well nourished, no distress - Eyes PERRL - Neck no masses, no bruits, trachea midline - Respiratory normal expansion, normal respiratory effort - Cardiovascular Rhythm: regular - Abdomen Abdomen: soft, non tender, bowel sounds (normal) - Integumentary no rash, no growths, no abnormal pigmentation (The patient's right lower extremi ty is moderately swollen from the upper thigh level to the foot. The patient indicates this is improved when compared to previous. Palpable femoral, popliteal and posterior tibial pulses are intact bilaterally. There is no cyanosis. There is no evidence of venous insufficiency affecting either lower extremity such as stasis dermatitis or varicosities.) Results - Labs 04/08/20 03:46 04/07/20 22:14 Abnormal Lab Results - Last 24 Hours (Table) 04/07/20 04/07/20 04/07/20 Range/Units 22:14 22:14 22:14 WBC 10.8 H (3.8-10.6) k/uL RBC 3.34 L (4.30-5.90) m/uL Hgb 9.5 L (13.0-17.5) gm/dL Hct 30.0 L (39.0-53.0) % RDW 15.7 H (11.5-15.5) % APTT 21.6 L (22.0-30.0) sec Sodium 136 L (137-145) mmol/L Chloride 108 H (98-107) mmol/L Carbon Dioxide 20 L (22-30) mmol/L BUN 33 H (9-20) mg/dL Creatinine 2.17 H (0.66-1.25) mg/dL 04/08/20 04/08/20 04/08/20 Range/Units 03:46 03:46 11:25 WBC 11.9 H (3.8-10.6) k/uL RBC 3.43 L (4.30-5.90) m/uL Hgb 9.9 L (13.0-17.5) gm/dL Hct 31.0 L (39.0-53.0) % RDW 15.7 H (11.5-15.5) % APTT 77.5 H 68.2 H (22.0-30.0) sec Sodium (137-145) mmol/L Chloride (98-107) mmol/L Carbon Dioxide (22-30) mmol/L BUN (9-20) mg/dL Creatinine (0.66-1.25) mg/dL Diabetes panel 04/07/20 Range/Units 22:14 Sodium 136 L (137-145) mmol/L Potassium 4.9 (3.5-5.1) mmol/L Chloride 108 H (98-107) mmol/L Carbon Dioxide 20 L (22-30) mmol/L BUN 33 H (9-20) mg/dL Creatinine 2.17 H (0.66-1.25) mg/dL Glucose 99 (74-99) mg/dL Calcium 9.3 (8.4-10.2) mg/dL Calcium panel 04/07/20 Range/Units 22:14 Calcium 9.3 (8.4-10.2) mg/dL Pituitary panel 04/07/20 Range/Units 22:14 Sodium 136 L (137-145) mmol/L Potassium 4.9 (3.5-5.1) mmol/L Chloride 108 H (98-107) mmol/L Carbon Dioxide 20 L (22-30) mmol/L BUN 33 H (9-20) mg/dL Creatinine 2.17 H (0.66-1.25) mg/dL Glucose 99 (74-99) mg/dL Calcium 9.3 (8.4-10.2) mg/dL Adrenal panel 04/07/20 Range/Units 22:14 Sodium 136 L (137-145) mmol/L Potassium 4.9 (3.5-5.1) mmol/L Chloride 108 H (98-107) mmol/L Carbon Dioxide 20 L (22-30) mmol/L BUN 33 H (9-20) mg/dL Creatinine 2.17 H (0.66-1.25) mg/dL Glucose 99 (74-99) mg/dL Calcium 9.3 (8.4-10.2) mg/dL
[2020-04-08] MEDS: SODIUM CHLORIDE 0.45% 1,000 ML IV SCH (14:49)
--- NOTE | 2020-04-08 15:01 | ECHOF ---
Referral Reason:dvt/ pa pressure MEASUREMENTS -------- HEIGHT: 182.9 cm WEIGHT: 99.8 kg BP: RVIDd: 2.5 cm (< 3.3) IVSd: 1.3 cm (0.6 - 1.1) LVIDd: 4.6 cm (3.9 - 5.3) LVPWd: 1.4 cm (0.6 - 1.1) IVSs: 2.0 cm LVIDs: 2.0 cm LVPWs: 1.8 cm Ao Diam: 3.2 cm (2.0 - 3.7) AV Cusp: 2.5 cm (1.5 - 2.6) LA Diam: 3.9 cm (2.7 - 3.8) MV EXCURSION: 18.742 mm (> 18.000) MV EF SLOPE: 97 mm/s (70 - 150) EPSS: 0.5 cm MV E Shaheen: 0.90 m/s MV DecT: 225 ms MV A Shaheen: 0.95 m/s MV E/A Ratio: 0.95 RAP: 5.00 mmHg RVSP: 13.29 mmHg FINDINGS -------- Sinus rhythm. This was a technically difficult study with suboptimal views. The left ventricular size is normal. There is moderate concentric left ventricular hypertrophy. O verall left ventricular systolic function is normal with, an EF between 55 - 60 %. The right ventricle is normal in size. The left atrial size is normal. The right atrial size is normal. xx ml of Lumason was utilized for enhancement of images. The aortic valve is trileaflet and appears structurally normal. The mitral valve is normal. Mild mitral regurgitation is present. The tricuspid valve appears structurally normal. Mild tricuspid regurgitation present. Right vent ricular systolic pressure is normal at < 35 mmHg. The pulmonic valve was not well visualized. The aortic root size is normal. IVC Not well visulized. There is no pericardial effusion. CONCLUSIONS -------- 1. Sinus rhythm. 2. This was a technically difficult study with suboptimal views. 3. The left ventricular size is normal. 4. There is moderate concentric left ventricular hypertrophy. 5. Overall left ventricular systolic function is normal with, an EF between 55 - 60 %. 6. The right ventricle is normal in size. 7. The left atrial size is normal. 8. The right atrial size is normal. 9. xx ml of Lumason was utilized for enhancement of images. 10. The aortic valve is trileaflet and appears structurally normal. 11. The mitral valve is normal. 12. Mild mitral regurgitation is present. 13. The tricuspid valve appears structurally normal. 14. Mild tricuspid regurgitation present. 15. Right ventricular systolic pressure is normal at < 35 mmHg. 16. The pulmonic valve was not well visualized. 17. The aortic root size is normal. 18. IVC Not well visulized. 19. There is no pericardial effusion. SURFBOARD MAKER: Jailene Rojas RDCS
--- NOTE | 2020-04-08 16:18 | XR ---
EXAMINATION TYPE: XR chest 2V DATE OF EXAM: 04/08/2020 COMPARISON: 11/15/2019 HISTORY: 85-year-old male DVT, PE, shortness of breath TECHNIQUE: PA and lateral views FINDINGS: Heart upper limits of normal in size. Mild interstitial prominence may be technical. Rounded retrocar diac density. Mild hyperinflation. No consolidation or pleural effusion. IMPRESSION: Borderline heart size. Possible underlying COPD. Small to moderate sized hiatal hernia suspected.
[2020-04-09] MEDS: HEPARIN SOD,PORK IN 0.45% NACL 25,000 UNIT in 0.45% NACL 1 250ML.BAG IV SCH (02:33)
[2020-04-09] MEDS: SODIUM CHLORIDE 0.45% 1,000 ML IV SCH ×2 (05:01→19:18)
[2020-04-09] MEDS: PANTOPRAZOLE 40 MG TABLET PO SCH ×2 (06:07→17:01)
[2020-04-09 07:01] LABS: Basophils # (A) 0.1 k/uL (0-0.2); Basophils % (A) 1 %; Eosinophils # (A) 0.3 k/uL (0-0.7); Eosinophils % (A) 4 %; HCT 30.8 % (39.0-53.0); HGB 9.7 gm/dL (13.0-17.5); Hypochromasia Marked; Lymphocytes # (A) 1.8 k/uL (1.0-4.8); Lymphocytes % (A) 22 %; MCH 28.9 pg (25.0-35.0); MCHC 31.7 g/dL (31.0-37.0); MCV 91.3 fL (80.0-100.0); Monocytes # (A) 0.6 k/uL (0-1.0); Monocytes % (A) 7 %; Neutrophils % (A) 62 %; Platelet Count 216 k/uL (150-450); RBC 3.37 m/uL (4.30-5.90); RDW 15.5 % (11.5-15.5)
[2020-04-09 07:35] LABS: Calcium 10.1 mg/dL (8.4-10.2)
[2020-04-09] MEDS: METOPROLOL TARTRATE 25 MG TAB PO SCH ×2 (08:56→19:21)
[2020-04-09] MEDS: MULTIVITAMINS, THERA 1 EACH TAB PO SCH (08:56)
[2020-04-09] MEDS: amLODIPine 2.5 MG TAB PO SCH (08:56)
[2020-04-09] MEDS: PYRIDOXINE 50 MG TAB PO SCH (08:57)
[2020-04-09] MEDS ORDERED: BISACODYL 5 MG TABLET.DR PO SCH (09:00)
[2020-04-09] MEDS ORDERED: APIXABAN 5 MG TAB PO SCH (09:30)
--- NOTE | 2020-04-09 10:59 | P.PN ---
Subjective Progress Note Date: 04/09/20 This is an 85-year-old pleasant gentleman, patient of Dr. Carrillo who presented to the emergency room for evaluation of right lower extremity pain and swelling. With past medical history significant for CAD post [place] a few years ago who sees Dr. batista on on a regular basis, hypertension, hyperlipidemia, obstructive sleep apnea, diagnosed with Alzheimer's this past year. Patient was on anticoagulants but due to GI bleed in October the anticoagulant was stopped. Patient stated that he noticed pain and difficulty walking approximately 5 days ago. His leg became edematous. About 3 days ago he considered calling the office however chose not to. Yesterday patient and daughter convinced him to go to the emergency room for evaluation pain has now focused to posterior right knee. Patient denies any trauma or recent falls. Patient denies any chest pain or difficulty breathing. Denies any cough fever or chills. No history of DVT or PE in the past. At this time patient is resting comfortably in bed. He is aware where he has been able to answer questions appropriately. Patient does have episodes of confusion which come and go. Patient continues to have edema redness and pain to the right lower extremity. Venous Doppler showed positive DVT E IV through proximal calf veins. WC 11.9, hemoglobin 9.9, platelets 208, potassium 4.9, BUN 33, creatinine 2.17 04/09: Patient is resting comfortably in bed. He will to answer questions appropriately. No episodes of confusion noted. Continues have edema and redness to the right lower extremity. Seen by vascular surgery recommended to follow current plan of care. WBC 8.0, hemoglobin 9.7, potassium 5.0, BUN 26, creatinine 2.16. Patient has been afebrile heart rate 98, respirations 14, blood pressure 149/89, pulse ox 96% on room air, Review Of Systems: Constitutional: No fever, no chills, no night sweats. No weight change. No weakness, fatigue or lethargy. No daytime sleepiness. EENT: No headache. No blurred vision or double vision, no loss of vision. No loss of Hearing, no ringing in the ears, no dizziness. No nasal drainage or congestion. No epistaxis. No sore throat. Lungs: No shortness of breath, cough, no sputum production. No wheezing. Cardiovascular: No chest pain, no lower extremity edema. No palpitations. No paroxysmal nocturnal dyspnea. No orthopnea. No lightheadedness or dizziness. No syncopal episodes. Abdominal: no abdominal discomfort. No nausea, vomiting. no diarrhea. No constipation. No bloody or tarry stools. no loss of appetite. Genitourinary: No dysuria, increased frequency, urgency. No urinary retention. Musculoskeletal: Reports edema, reports right lower extremity pain, reports redness to right lower extremity, reports gait dysfunction No myalgias. no frequent falls. No back pain. No neck pain. Integumentary: No wounds, no lesions. No rash or pruritus. No unusual bruising. No change in hair or nails. Neurologic: No aphasia. No facial droop. No change in mentation. No head injury. No headache. No paralysis. No paresthesia. Psychiatric: No depression. No anxiety. No mood swings. Endocrine: No abnormal blood sugars. No weight change. No excessive sweating or thirst. Objective - Vital Signs Vital signs: Vital Signs Temp 98.7 F 04/09/20 08:00 Pulse 98 04/09/20 08:00 Resp 14 04/09/20 08:00 BP 149/89 04/09/20 08:00 Pulse Ox 96 04/09/20 08:00 Intake & Output 04/08/20 04/09/20 04/09/20 18:59 06:59 18:59 Intake Total 665.599 695.934 240 Output Total 1650 1050 Balance -984.401 -354.066 240 Weight 83.5 kg Intake: Intake, IV Titration 125.599 695.934 Amount Heparin Sod,Pork in 0.45% 125.599 95.934 NaCl 25,000 unit In 0.45 % NaCl 1 250ml.bag @ 18 UNITS/KG/HR 17.962 mls/hr IV .[id number] [facility] Rx#: [id number] Sodium Chloride 0.45% 1, 600 000 ml @ 75 mls/hr IV . [id number] [facility] Rx#:[id number] Oral 540 240 Output: Urine 1650 1050 Other: Voiding Method Urinal Urinal Urinal # Voids 2 1 - Exam General Appearance: 85-year-old male sitting up in bed Alert, coop erative, no distress, appears stated age. Neck HEENT: Supple, no lymphadenopathy, no thyroid enlargement, no carotid bruits. Lungs: Clear to auscultation without crackles or wheezes no rhonchi, no def ormity. Chest Wall: Chest wall normal expansion with deep inspiration no tenderness and no deformity was found on exam, no costochondral pain or discomfort. Heart: Regular rate and rhythm, S1, S2 normal, no murmur, rub or gallop. Back: Symmetric, no curvature, ROM normal, no CVA tenderness. Abdomen: Soft, non-tender, no rebound or rigidity, no hepatosplenomegaly. Extremities: Right lower extremity edematous, warm to touch, erythema, positive Homans sign to the right all other Extremities normal, atraumatic, no cyanosis or edema. Pulses: 2+ and symmetric. Skin: Skin color, texture, tugor normal, no rashes or lesions. Neurologic: Alert oriented x3 cranial nerves II through XII intact, no motor deficit, no abnormal balance or gait, no confusion noted, able to answer questions appropriately - Labs CBC & Chem 7: 04/09/20 06:32 04/09/20 06:32 Labs: Abnormal Lab Results - Last 24 Hours (Table) 04/08/20 04/08/20 04/09/20 Range/Units 11:25 18:24 06:32 RBC 3.37 L (4.30-5.90) m/uL Hgb 9.7 L (13.0-17.5) gm/dL Hct 30.8 L (39.0-53.0) % APTT 68.2 H 51.2 H (22.0-30.0) sec Chloride (98-107) mmol/L Carbon Dioxide (22-30) mmol/L BUN (9-20) mg/dL Creatinine (0.66-1.25) mg/dL Glucose (74-99) mg/dL 04/09/20 04/09/20 Range/Units 06:32 06:32 RBC (4.30-5.90) m/uL Hgb (13.0-17.5) gm/dL Hct (39.0-53.0) % APTT 41.7 H (22.0-30.0) sec Chloride 109 H (98-107) mmol/L Carbon Dioxide 17 L (22-30) mmol/L BUN 26 H (9-20) mg/dL Creatinine 2.16 H (0.66-1.25) mg/dL Glucose 106 H (74-99) mg/dL Assessment and Plan Plan: 1. Deep vein thrombosis possible PE due to elevated kidney function CTA cannot be obtained. Discussed surgeon consult appreciated. Echocardiogram results showing: Sinus rhythm, moderate concentric left ventricular atrophy, EF of 55- 60%, mild mitral regurgitation right atrial size is normal, patient will be started on 5 mg of eliquis due to patient's kidney function. He will then be transitioned to 2.5 mg when seen in the office. Patient may have a HIDA scan in the next few days if symptoms progress. [place]er to be stopped 1800 tonight. Consult cardiology appreciated. Occult blood ordered. 2. Stage III chronic kidney disease continue with mild hydration repeat BMP daily. 3. CAD post [place] post-PCI and stent placement last one was 2009, sees cardiology on a regular basis. 4. Hypertension. Continue on amlodipine and metoprolol 5. Hyperlipidemia. Continue on statin 6. Alzheimer's disease. Continue on donepezil 10 mg daily at bedtime 7. DVT prophylaxis. Continue with heparin drip 8. GI prophylaxis. Protonix 40 mg by mouth twice a day 9. Covid 19 pending CODE STATUS: Full code Discharge plan: Admit to inpatient status for minimal of 2 nights, Possibly home tomorrow Impression and plan of care have been directed as dictated by the signing physician. Catherine Barnes nurse practitioner acting as scribe for signing physician.
--- NOTE | 2020-04-09 11:24 | P.PN ---
Subjective Progress Note Date: 04/09/20 History of present illness: This is an 85-year-old gentleman who follows with Dr. Kaiser in the office. He has a known history of hypertension, hyperlipidemia, coronary artery disease with prior stenting of the RCA in 2010, chronic kidney disease, he is a nonsmoker. He had a recent hospitalization for acute blood loss anemia secondary to duodenitis and esophageal ulcer. Patient presents to the hospital on this occasion with complaints of swelling to the right lower extremity. He had onset of pain and swelling when he woke up one morning about 3-4 days ago. He denies any travel or sedentary/bedrest. He denies having any shortness of breath, difficulty deep breathing or cough, fever or chills. Patient came into [facility] emergency center for evaluation and ultrasound of the right lower extremity was positive for DVT extending from the iliac vein to the upper calf vein. Patient was started on a heparin drip and consult is in place with vascular surgery. His hemoglobin this morning is at 9.9 and stool for occult blood to be obtained. BUN is 33 creatinine 2.17, sodium 136, potassium 34.9, chloride 108, CO2 20. 6/: Patient has been seen by vascular surgery and a CAT scan of the abdomen and pelvis without contrast has been ordered to rule out possibility of ileal caval thrombus and possibility of intra-abdominal/pelvic malignancy. Report is currently pending. Patient has been transitioned off heparin drip to oral Levaquin was 5 mg twice daily. Agree with current treatment and monitoring for GI bleed. Repeat blood work reveals BUN of 26, creatinine 2.16, hemoglobin 9.7. Physical examination: Gen: This is an 85-year-old male. He is resting in bed appears to be comfortable and in no acute distress. VS: Afebrile, heart rate 80, blood pressure 135/80, pulse ox 97% on room air. HEENT: Head is atraumatic, normocephalic. Pupils equal, round. Sclerae is anicteric. NECK: Supple. No JVD. No lymphadenopathy. No thyromegaly. LUNGS: Clear to auscultation. No wheezes or rhonchi. No intercostal retractions. HEART: Regular rate and rhythm. Systolic murmur. ABDOMEN: Soft. Bowel sounds are present. No masses. No tenderness. EXTREMITIES: Edema to the right lower extremity with mild warmth to touch compared to left. No calf tenderness. NEUROLOGICAL: Patient is awake, alert and oriented x3. Cranial nerves 2 through 12 are grossly intact. Assessment: Extensive DVT right lower extremity History of acute GI bleed secondary to esophageal ulcer in October Hypertension Hyperlipidemia Coronary artery disease status post stent of the RCA in 2010 Chronic kidney disease 3 Alzheimer's disease Plan: Heparin drip has been transitioned to oral eliquis Obtain stool for occult blood has not been obtained Monitor hemoglobin closely and monitor for GI bleeding Report on CT of abdomen and pelvis Further recommendations to follow based upon clinical course Thank you kindly for this consultation Nurse practitioner note has been reviewed, I agree with documented findings and plan of care. Patient was seen and examined. Objective - Vital Signs Vital signs: Vital Signs Temp 97.7 F 04/09/20 04:00 Pulse 80 04/09/20 04:00 Resp 17 04/09/20 04:00 BP 127/77 04/09/20 04:00 Pulse Ox 96 04/09/20 04:00 Intake & Output 04/08/20 04/09/20 04/09/20 18:59 06:59 18:59 Intake Total 665.599 695.934 240 Output Total 1650 1050 Balance -984.401 -354.066 240 Weight 83.5 kg Intake: Intake, IV Titration 125.599 695.934 Amount Heparin Sod,Pork in 0.45% 125.599 95.934 NaCl 25,000 unit In 0.45 % NaCl 1 250ml.bag @ 18 UNITS/KG/HR 17.962 mls/hr IV .[id number] OC Rx#: [id number] Sodium Chloride 0.45% 1, 600 000 ml @ 75 mls/hr IV . [id number] OC Rx#:[id number] Oral 540 240 Output: Urine 1650 1050 Other: Voiding Method Urinal Urinal # Voids 2 1 - Labs CBC & Chem 7: 04/09/20 06:32 04/09/20 06:32 Labs: Abnormal Lab Results - Last 24 Hours (Table) 04/08/20 04/08/20 04/09/20 Range/Units 11:25 18:24 06:32 RBC 3.37 L (4.30-5.90) m/uL Hgb 9.7 L (13.0-17.5) gm/dL Hct 30.8 L (39.0-53.0) % APTT 68.2 H 51.2 H (22.0-30.0) sec Chloride (98-107) mmol/L Carbon Dioxide (22-30) mmol/L BUN (9-20) mg/dL Creatinine (0.66-1.25) mg/dL Glucose (74-99) mg/dL 04/09/20 04/09/20 Range/Units 06:32 06:32 RBC (4.30-5.90) m/uL Hgb (13.0-17.5) gm/dL Hct (39.0-53.0) % APTT 41.7 H (22.0-30.0) sec Chloride 109 H (98-107) mmol/L Carbon Dioxide 17 L (22-30) mmol/L BUN 26 H (9-20) mg/dL Creatinine 2.16 H (0.66-1.25) mg/dL Glucose 106 H (74-99) mg/dL
[2020-04-09] MEDS: APIXABAN 5 MG TAB PO SCH (11:26)
--- NOTE | 2020-04-09 12:00 | CT ---
EXAMINATION TYPE: CT abdomen pelvis wo con DATE OF EXAM: 04/09/2020 COMPARISON: Previous study dated 04/23/2016. HISTORY: deep venous thrombosis CT DLP: 1161.4 mGycm Automated exposure control for dose reduction was used. FINDINGS: Visualized portions of the lungs are clear. There is no pleural or pericardial fluid. The h eart is not enlarged. There is a small to moderate sliding hiatal hernia. Within the abdomen, the liver is normal in size. The gallbladder is contracted. The spleen is normal. Both adrenal glands are normal. The pancreas has a normal appearance. There is no evidence of nephrolithiasis or hydronephrosis. There is mild/moderate atheromatous calcification of the visualized arterial tree. There is a 2.3 cm right common iliac aneurysm and a smaller 2 cm left iliac artery aneurysm. The right iliac artery ane urysm is stable. The left has enlarged from 14 mm to 20 mm. There is no significant retroperitoneal, iliac or inguinal adenopathy. The bladder is unremarkable. There are scattered diverticula within the sigmoid region. There is no radiographic evidence of diver ticulitis. The appendix is not visualized with certainty. Small bowel loops are unremarkable. There is no free fluid and no free air identified. There is degenerative disc disease, hypertrophic spondylosis and facet arthropathy within the spine. IMPRESSION: 1. SLIDING HIATAL HERNIA. 2. BILATERAL ILIAC ARTERY ANEURYSMS. THE RIGHT ILIAC ARTERY IS STABLE IN SIZE. THE LEFT HAS ENLARGED SLIGHTLY FROM PREVIOUS. 3. UNCOMPLICATED, MINIMAL DIVERTICULOSIS OF THE SIGMOID COLON. 4. DEGENERATIVE CHANGES WITHIN THE SPINE.
--- NOTE | 2020-04-09 13:06 | P.PN ---
Subjective Progress Note Date: 04/09/20 CT scan does not suggest ileo - caval thrombus. No indication for IVC filter / thrombolysis. Thus would agree that oral anticoagulation is appropriate, along with DEANGELO hose to help reduce edema, along with leg elevation. Would like to follow patient as an outpatient ~ 1 -2 weeks post discharge. Objective - Vital Signs Vital signs: Vital Signs Temp 97.9 F 04/09/20 11:14 Pulse 80 04/09/20 11:14 Resp 16 04/09/20 11:14 BP 135/80 04/09/20 11:14 Pulse Ox 97 04/09/20 11:14 Intake & Output 04/08/20 04/09/20 04/09/20 18:59 06:59 18:59 Intake Total 665.599 695.934 240 Output Total 1650 1050 200 Balance -984.401 -354.066 40 Weight 83.5 kg Intake: Intake, IV Titration 125.599 695.934 Amount Heparin Sod,Pork in 0.45% 125.599 95.934 NaCl 25,000 unit In 0.45 % NaCl 1 250ml.bag @ 18 UNITS/KG/HR 17.962 mls/hr IV .[id number] OC Rx#: [id number] Sodium Chloride 0.45% 1, 600 000 ml @ 75 mls/hr IV . [id number] [facility] Rx#:[id number] Oral 540 240 Output: Urine 1650 1050 200 Other: Voiding Method Urinal Urinal Urinal # Voids 2 1 - Labs CBC & Chem 7: 04/09/20 06:32 04/09/20 06:32 Labs: Abnormal Lab Results - Last 24 Hours (Table) 04/08/20 04/09/20 04/09/20 Range/Units 18:24 06:32 06:32 RBC 3.37 L (4.30-5.90) m/uL Hgb 9.7 L (13.0-17.5) gm/dL Hct 30.8 L (39.0-53.0) % APTT 51.2 H 41.7 H (22.0-30.0) sec Chloride (98-107) mmol/L Carbon Dioxide (22-30) mmol/L BUN (9-20) mg/dL Creatinine (0.66-1.25) mg/dL Glucose (74-99) mg/dL 04/09/20 Range/Units 06:32 RBC (4.30-5.90) m/uL Hgb (13.0-17.5) gm/dL Hct (39.0-53.0) % APTT (22.0-30.0) sec Chloride 109 H (98-107) mmol/L Carbon Dioxide 17 L (22-30) mmol/L BUN 26 H (9-20) mg/dL Creatinine 2.16 H (0.66-1.25) mg/dL Glucose 106 H (74-99) mg/dL
[2020-04-09 17:09] VITALS: RESP 17
[2020-04-09] MEDS: ACETAMINOPHEN TAB 325 MG TAB PO PRN (19:04)
[2020-04-09] MEDS: SODIUM CHLORIDE 0.9% 1,000 ML IV SCH (22:52)
[2020-04-10] MEDS: SODIUM CHLORIDE 0.45% 1,000 ML IV SCH (06:39)
[2020-04-10] MEDS: MULTIVITAMINS, THERA 1 EACH TAB PO SCH (08:20)
[2020-04-10] MEDS: APIXABAN 5 MG TAB PO SCH (08:20)
[2020-04-10] MEDS: amLODIPine 2.5 MG TAB PO SCH (08:20)
[2020-04-10] MEDS: PANTOPRAZOLE 40 MG TABLET PO SCH (08:20)
[2020-04-10] MEDS: METOPROLOL TARTRATE 25 MG TAB PO SCH (08:21)
[2020-04-10] MEDS: PYRIDOXINE 50 MG TAB PO SCH (08:21)
--- NOTE | 2020-04-10 09:27 | P.PN ---
Subjective Progress Note Date: 04/10/20 Principal diagnosis: Right lower extremity deep vein thrombosis Patient was seen and examined at the bedside. Patient sitting up in the recliner. He denies any shortness of breath or chest pain. States the pain in the right lower extremity has improved. Still having swelling to the right lower extremity. Heparin drip has been discontinued, and patient has been switched over to Eliquis. The patient will be discharged home today on Eliquis. Objective - Vital Signs Vital signs: Vital Signs Temp 98.8 F 04/10/20 08:00 Pulse 98 04/10/20 08:00 Resp 17 04/10/20 08:00 BP 134/81 04/10/20 08:00 Pulse Ox 96 04/10/20 08:00 Intake & Output 04/09/20 04/10/20 04/10/20 18:59 06:59 18:59 Intake Total 480 Output Total 200 700 300 Balance 280 -700 -300 Weight 79.7 kg Intake: Oral 480 Output: Urine 200 700 300 Other: Voiding Method Urinal Urinal # Voids 1 1 - Exam General appearance: The patient is alert, oriented, in no acute distress. HET: Head is normocephalic and atraumatic. Neck: Supple without lymphadenopathy. Trachea midline. Heart: S1 S2. Regular rate and rhythm. Lungs: No crackles or wheezes are heard. Abdomen: Soft, nontender, nondistended with bowel sounds. No peritoneal signs. No palpable organomegaly or masses. Extremities: Right lower extremity with swelling and redness. Patient is able to fully move his right lower extremity including toes. Denies any pain with palpation. Palpable PT and DP pulses. No cyanosis, capillary refill 3-5 seconds. Neurological: No focal deficits. Strength and sensation are grossly intact. - Labs CBC & Chem 7: 04/09/20 06:32 04/09/20 06:32 Assessment and Plan Assessment: #1: Extensive right femoral and possible iliac acute deep venous thrombosis was secondary leg edema. #2: Anemia of undetermined etiology. #3: History of coronary artery disease, status post cardiac catheterization with balloon dilation and stenting 2. #4: History tobacco use, has quitting tobacco use approximate 45 years prior #5: Renal insufficiency with a creatinine of 2.17. Plan: Patient will be discharged home today on Eliquis. Patient instructed to keep right lower extremity elevated, discussed with nurse to apply a compression stocking to help reduce the swelling on the right lower extremity. He is to follow-up with Dr. Mccormick in 1-2 weeks in the office. The above dictated assessment and findings were discussed with Dr. Lyons. The impression and plan of care have been directed as dictated.
[2020-04-10 12:17] VITALS: BP 140/85; PULSE 87; TEMP 98.4
--- NOTE | 2020-04-10 13:15 | P.DS ---
Providers Date of admission: 04/07/20 22:53 Expected date of discharge: 04/10/20 Attending physician: Carroll Carrillo Consults: 04/07/20 22:58 Consult Physician Routine Consulting Provider: Russell Mccormick Consult Reason/Comments: DVT Do you want consulting provider notified?: Yes 04/08/20 09:43 Consult Physician Routine Consulting Provider: Earl Dutta Consult Reason/Comments: DVT Do you want consulting provider notified?: Yes Primary care physician: Carroll Carrillo [facility] Course: This is an 85-year-old pleasant gentleman, patient of Dr. Carrillo who presented to the emergency room for evaluation of right lower extremity pain and swelling. With past medical history significant for CAD post [place] a few years ago who sees Dr. batista on on a regular basis, hypertension, hyperlipidemia, obstructive sleep apnea, diagnosed with Alzheimer's this past year. Patient was on anticoagulants but due to GI bleed in October the anticoagulant was stopped. Patient stated that he noticed pain and difficulty walking approximately 5 days ago. His leg became edematous. About 3 days ago he considered calling the office however chose not to. Yesterday patient and daughter convinced him to go to the emergency room for evaluation pain has now focused to posterior right knee. Patient denies any trauma or recent falls. Patient denies any chest pain or difficulty breathing. Denies any cough fever or chills. No history of DVT or PE in the past. At this time patient is resting comfortably in bed. He is aware where he has been able to answer questions appropriately. Patient does have episodes of confusion which come and go. Patient continues to have edema redness and pain to the right lower extremity. Venous Doppler showed positive DVT E IV through proximal calf veins. WC 11.9, hemoglobin 9.9, platelets 208, potassium 4.9, BUN 33, creatinine 2.17 04/09: Patient is resting comfortably in bed. He will to answer questions appropriately. No episodes of confusion noted. Continues have edema and redness to the right lower extremity. Seen by vascular surgery recommended to follow current plan of care. WBC 8.0, hemoglobin 9.7, potassium 5.0, BUN 26, creatinine 2.16. Patient has been afebrile heart rate 98, respirations 14, blood pressure 149/89, pulse ox 96% on room air, 04/10: Echocardiogram reveals EF of 55-60% with mild mitral regurgitation, mild tricuspid regurgitation. CAT scan of abdomen and pelvis without contrast revealed sliding hiatal hernia. Bilateral iliac artery aneurysms. The right iliac artery is stable in size. The left has enlarged slightly from previous. Uncomplicated vaginal diverticulosis of the sigmoid colon. Degenerative changes within the spine. Patient has been started on eliquis and heparin drip was discontinued. Patient has had no signs of bleeding. Patient is seen today dressed and ready for discharge. physician practice manager has checked brace on eliquis and patient does have a high co-pay for first month will be free and patient will follow-up in the office for assistance. Patient will be discharged home today in stable condition. Discharge diagnoses: 1. Deep vein thrombosis right lower extremity. 2. Stage III chronic kidney disease. 3. CAD post [place] post-PCI and stent placement last one was 2009. 4. Hypertension. 5. Hyperlipidemia. 6. Alzheimer's disease. 7. Covid 19 infection not present Discharge plan: Home Impression and plan of care have been directed as dictated by the signing physician. Angela Dumont nurse practitioner acting as scribe for signing physician. Patient Condition at Discharge: Good Plan - Discharge Summary Discharge Rx Participant: No New Discharge Prescriptions: New Apixaban [Eliquis] 5 mg PO BID #60 tab Continue Pyridoxine [Vitamin B-6] 50 mg PO DAILY Metoprolol Tartrate 25 mg PO BID Multivit-Min/FA/Lycopen/Lutein [Centrum Silver Men Tablet] 1 tab PO DAILY amLODIPine [Norvasc] 2.5 mg PO DAILY Pantoprazole [Protonix] 40 mg PO AC-BID #60 tablet.[address] Kaye Beta Prostate P3 1 tab PO DAILY Bisacodyl [Dulcolax] 5 mg PO Q48H Aspirin [[place] Aspirin EC] 81 mg PO DAILY Discharge Medication List Metoprolol Tartrate 25 mg PO BID 11/27/15 [History] Pyridoxine [Vitamin B-6] 50 mg PO DAILY 11/27/15 [History] Multivit-Min/FA/Lycopen/Lutein [Centrum Silver Men Tablet] 1 tab PO DAILY 11/15/19 [History] amLODIPine [Norvasc] 2.5 mg PO DAILY 11/15/19 [History] Pantoprazole [Protonix] 40 mg PO AC-BID #60 tablet. 11/17/19 [Rx] Aspirin [Chowan Aspirin EC] 81 mg PO DAILY 04/07/20 [History] Bisacodyl [Dulcolax] 5 mg PO Q48H 04/07/20 [History] Super Beta Prostate P3 1 tab PO DAILY 04/07/20 [History] Apixaban [Eliquis] 5 mg PO BID #60 tab 04/10/20 [Rx] Follow up Appointment(s)/Referral(s): Russell Mccormick DO [Doctor of Osteopathic Medicine] - 1 Week (April 27, 1:15) Carroll Carrillo MD [Primary Care Provider] - 3 Days (Friday, April 12 11:00) Patient Instructions/Handouts: Deep Vein Thrombosis (DC), Deep Vein Thrombosis (GEN) Activity/Diet/Wound Care/Special Instructions: Eliquis has high copay $459 - free 30 day coupon applied. Call to see if you qualify for patient assistance program, if not discuss with PCP keep right leg elevated wear support hose on right leg Discharge Disposition: HOME SELF-CARE
--- NOTE | 2020-04-10 13:42 | P.PN ---
Subjective Progress Note Date: 04/10/20 This is an 85-year-old gentleman who follows with Dr. Kaiser in the office. He has a known history of hypertension, hyperlipidemia, coronary artery disease with prior stenting of the RCA in 2010, chronic kidney disease, he is a nonsmoker. He had a recent hospitalization for acute blood loss anemia secondary to duodenitis and esophageal ulcer. Patient presents to the hospital on this occasion with complaints of swelling to the right lower extremity. Ruled in for a DVT. Currently he is on oral anticoagulation. Blood pressure 140/80 with a heart rate in the 80s, 96% on room air. White blood cell count 8.0, hemoglobin 9.7, platelet count 216. Sodium 140, potassium 5.0, BUN 26, creatinine 2.1. Objective - Vital Signs Vital signs: Vital Signs Temp 98.4 F 04/10/20 12:05 Pulse 87 04/10/20 12:05 Resp 17 04/10/20 12:05 BP 140/85 04/10/20 12:05 Pulse Ox 96 04/10/20 12:05 Intake & Output 04/09/20 04/10/20 04/10/20 18:59 06:59 18:59 Intake Total 480 480 Output Total 200 700 300 Balance 280 -700 180 Weight 79.7 kg Intake: Oral 480 480 Output: Urine 200 700 300 Other: Voiding Method Urinal Urinal # Voids 1 3 - Exam Assessment and plan: #1Extensive DVT right lower extremity #2History of acute GI bleed secondary to esophageal ulcer in October #3Hypertension #4Hyperlipidemia #5Coronary artery disease status post stent of the RCA in 2010 #6Chronic kidney disease 3 #7Alzheimer's disease Plan From cardiology's perspective, we'll recommend to continue current ant icoagulation. Patient may be able to be discharged home. Follow-up appointment in the office post discharge. DNP note has been reviewed, I agree with a documented findings and plan of care. Patient was seen and examined. - Labs CBC & Chem 7: 04/09/20 06:32 04/09/20 06:32
== END 2020-04-10 12:38 | disposition home or self-care (01) | DRG 299 ==
LOC: EC 20:58 → 3SCARD 22:53
PROVIDERS: ADMIT Internal Medicine Geriatric Medicine; ATTEND Internal Medicine Geriatric Medicine
DX: I82.411 Acute embolism and thrombosis of right femoral vein (principal); I26.99 Other pulmonary embolism without acute cor pulmonale; I72.3 Aneurysm of iliac artery; I82.431 Acute embolism and thrombosis of right popliteal vein; I82.421 Acute embolism and thrombosis of right iliac vein; F02.80 Dementia in other diseases classified elsewhere, unspecified severity, without behavioral disturbance, psychotic disturbance, mood disturbance, and anxiety; G30.9 Alzheimer's disease, unspecified; N18.3 Chronic kidney disease, stage 3 (moderate); D64.9 Anemia, unspecified; E78.5 Hyperlipidemia, unspecified; I12.9 Hypertensive chronic kidney disease with stage 1 through stage 4 chronic kidney disease, or unspecified chronic kidney disease; I25.10 Atherosclerotic heart disease of native coronary artery without angina pectoris; I25.2 Old myocardial infarction; K44.9 Diaphragmatic hernia without obstruction or gangrene; K57.30 Diverticulosis of large intestine without perforation or abscess without bleeding; G47.33 Obstructive sleep apnea (adult) (pediatric); K21.9 Gastro-esophageal reflux disease without esophagitis; R26.2 Difficulty in walking, not elsewhere classified; I08.1 Rheumatic disorders of both mitral and tricuspid valves; Z11.59 Encounter for screening for other viral diseases; Z79.82 Long term (current) use of aspirin; Z79.899 Other long term (current) drug therapy; Z88.8 Allergy status to other drugs, medicaments and biological substances; Z95.5 Presence of coronary angioplasty implant and graft; Z87.891 Personal history of nicotine dependence; Z87.19 Personal history of other diseases of the digestive system; Z80.0 Family history of malignant neoplasm of digestive organs; Z82.49 Family history of ischemic heart disease and other diseases of the circulatory system
CPT/HCPCS: 36415; 71046; 74176; 80048; 85025; 85610; 85730; 93306; 96365; 96376; 99285

== ENCOUNTER 2021-01-18 17:58 | Emergency (ER) | payer MEDICARE, BC ==
[2021-01-18 19:51] VITALS: BP 140/97; PULSE 94; RESP 18; TEMP 98.3
--- NOTE | 2021-01-18 19:52 | ED ---
General Adult HPI <Hunter Vaughn - Last Filed: 01/18/21 19:48> <Prema Huang - Last Filed: 01/19/21 00:20> - General Stated complaint: R knee pain, possible blood clot Time Seen by Provider: 01/18/21 19:45 - History of Present Illness Initial comments: 86 yo male presenting for evaluation of right knee. Pain has been present for the past 2 days. patient does not recall a specific injury. Patient has a history of DVT on the right. patient has no chest pain or dyspnea. (Hunter Vaughn) - Related Data Home Medications Medication Instructions Recorded Confirmed Metoprolol Tartrate 25 mg PO BID 11/27/15 04/07/20 Pyridoxine [Vitamin B-6] 50 mg PO DAILY 11/27/15 04/07/20 Multivit-Min/FA/Lycopen/Lutein 1 tab PO DAILY 11/15/19 04/07/20 [Centrum Silver Men Tablet] amLODIPine [Norvasc] 2.5 mg PO DAILY 11/15/19 04/07/20 Aspirin [[place] Aspirin EC] 81 mg PO DAILY 04/07/20 04/07/20 Super Beta Prostate P3 1 tab PO DAILY 04/07/20 04/07/20 bisacodyL [Dulcolax] 5 mg PO Q48H 04/07/20 04/07/20 Previous Rx's Medication Instructions Recorded Pantoprazole [Protonix] 40 mg PO AC-BID #60 tablet. 11/17/19 Apixaban [Eliquis] 5 mg PO BID #60 tab 04/10/20 Allergies Allergy/AdvReac Type Severity Reaction Status Date / Time fluticasone propionate AdvReac "prescription Verified 01/18/21 19:51 [From Flonase] strength gave me double vision" lisinopril AdvReac Cough Verified 01/18/21 19:51 Review of Systems ROS Other: All systems not noted in ROS Statement are negative. <Hunter Vaughn - Last Filed: 01/18/21 19:48> ROS Other: All systems not noted in ROS Statement are negative. <Prema Huang - Last Filed: 01/19/21 00:20> ROS Statement: Those systems with pertinent positive or pertinent negative responses have been documented in the HPI. Past Medical History Past Medical History: Deep Vein Thrombosis (DVT), GERD/Reflux, Hypertension, Myocardial Infarction ([place]), Sleep Apnea/CPAP/BIPAP Additional Past Medical History / Comment(s): HAVING LT LOWER ABD QUAD PAIN AND CONSTIPATION, dementia Last Myocardial Infarction Date:: SEP 2010 History of Any Multi-Drug Resistant Organisms: None Reported Past Surgical History: Heart Catheterization With Stent, Tonsillectomy Additional Past Surgical History / Comment(s): HEART STENT X 2 Past Anesthesia/Blood Transfusion Reactions: No Reported Reaction Additional Past Anesthesia/Blood Transfusion Reaction / Comment(s): NEVER HAS HAD BLOOD TRANSFUSION Date of Last Stent Placement:: 2009 Past Psychological History: No Psychological Hx Reported Past Alcohol Use History: None Reported Additional Past Alcohol Use History / Comment(s): QUIT SMOKING 1969', SMOKED APPROX 26 YRS 1PPD Past Drug Use History: None Reported - Past Family History Mother Family Medical History: Chest Pain / Angina Father Family Medical History: Cancer Additional Family Medical History / Comment(s): PROSTATE Brother(s) Family Medical History: Cancer, Myocardial Infarction ([place]) Additional Family Medical History / Comment(s): COLON CA <Hunter Vaughn - Last Filed: 01/18/21 19:48> General Exam <Hunter Vaughn - Last Filed: 01/18/21 19:48> - General Exam Comments Initial Comments: medical screening exam: No acute distress, vital signs within normal limits. (Hunter Vaughn) Course Vital Signs 01/18/21 19:48 Temperature 98.3 F Pulse Rate 94 Respiratory 18 Rate Blood Pressure 140/97 O2 Sat by Pulse 96 Oximetry Medical Decision Making <Prema Huang - Last Filed: 01/19/21 00:20> - Medical Decision Making Upon arrival patient is placed in room 29. X-rays performed which demonstrates significant osteoarthritis. Ultrasound was performed of the patient's right leg which demonstrates chronic clot in the femoral vein. This information is discussed with the patient. He is currently on Eliquis. Patient is to continue take the medications as directed. Follow up with his primary care doctor for further treatment. agreed to this and the patient was discharged home in stable condition (Prema Huang) Disposition <Hunter Vaughn - Last Filed: 01/18/21 19:48> Is patient prescribed a controlled substance at d/c from ED?: No Time of Disposition: 22:31 <Prmea Huang - Last Filed: 01/19/21 00:20> Clinical Impression: Deep vein thrombosis (DVT) of lower extremity Disposition: HOME SELF-CARE Condition: Stable Instructions (If sedation given, give patient instructions): Knee Pain (ED) Additional Instructions: Please follow up with your PCP in 2-4 days. Return to the ED for any new or worsening symptoms. Referrals: Carroll Carrillo MD [Primary Care Provider] - 1-2 days
--- NOTE | 2021-01-18 20:30 | XR ---
Right knee. HISTORY: Knee pain. COMPARISON: None. TECHNIQUE: 3 views the right knee were obtained. There is no fracture or focal intraosseous abnormality. There is no dislocation. There is a moderate joint effusion. There are marked degenerative changes particularly the medial compartment in the liver there is near complete obliteration of the joint space is mild hypertrophic spurring. There is also spurring of the lateral compartment and patellofemoral compartment. There are vascular calcifications. IMPRESSION: 1. No evidence of acute trauma. 2. Osteoarthritic changes in all 3 compartments of the greatest and severe in the medial compartment described above.
--- NOTE | 2021-01-18 22:19 | US ---
EXAMINATION TYPE: US venous doppler duplex LE RT DATE OF EXAM: 01/18/2021 10:01 PM COMPARISON: US CLINICAL HISTORY: DVT?. Swelling and discomfort in right leg x couple days per patient. Hx of DVT. Umesh ugarte is on eliquis. SIDE PERFORMED: Right TECHNIQUE: The lower extremity deep venous system is examined utilizing real time linear array sonog todd with graded compression, doppler sonography and color-flow sonography. VESSELS IMAGED: Common Femoral Vein Deep Femoral Vein Greater Saphenous Vein * Femoral Vein Popliteal Vein Small Saphenous Vein * Proximal Calf Veins (* superficial vessels) Right Leg: There appear to be internal echoes within the CFV, GSV, femoral vein. Color flow is seen with color defect. Veins appear to compress incompletely from prox femoral vein to distal popliteal v ein. Compression not done on CFV or GSV in groin due to internal echoes and color defect seen. GSV shows echoes 0.42 cm from junction. 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
== END 2021-01-18 22:38 | disposition home or self-care (01) ==
LOC: EC 17:58
DX: I82.511 Chronic embolism and thrombosis of right femoral vein (principal); I10 Essential (primary) hypertension; I25.2 Old myocardial infarction; K21.9 Gastro-esophageal reflux disease without esophagitis; G47.30 Sleep apnea, unspecified; Z87.891 Personal history of nicotine dependence; Z79.01 Long term (current) use of anticoagulants; Z79.82 Long term (current) use of aspirin
CPT/HCPCS: 99284

== ENCOUNTER → 2025-05-09 | Outpatient (CLI) | payer MEDICARE, BC ==
[2025-05-09 15:34] LABS: Basophils # (A) 0.06 X 10*3/uL (0.00-0.10); Basophils % (A) 0.6 %; Eosinophils # (A) 0.20 X 10*3/uL (0.04-0.35); Eosinophils % (A) 2.0 %; HCT 37.9 % (39.6-50.0); HGB 12.1 g/dL (13.0-17.0); Immature Grans, Automated 0.40 %; Lymphocytes # (A) 2.18 X 10*3/uL (0.90-5.00); Lymphocytes % (A) 21.5 %; MCH 31.9 pg (27.0-32.0); MCHC 31.9 g/dL (32.0-37.0); MCV 100.0 FL (80.0-97.0); Monocytes # (A) 0.98 X 10*3/uL (0.20-1.00); Monocytes % (A) 9.7 %; NRBC Per 100 WBC 0 X 10*3/uL (0.00-0.01); Neutrophils # (A) 6.69 X 10*3/uL (1.80-7.70); Neutrophils % (A) 65.8 %; Platelet Count 262 X 10*3/uL (140-440); RBC 3.79 X 10*6/uL (4.40-5.60); RDW 13.2 % (11.5-14.5); WBC 10.15 X 10*3/uL (4.50-10.00)
[2025-05-09 15:57] LABS: ALT 16 U/L (10-49); AST 17 U/L (14-35); Albumin 3.5 g/dL (3.8-4.9); Albumin/Globulin Ratio 0.88 Ratio (1.60-3.17); Alkaline Phosphatase 95 U/L (41-126); Anion Gap 15.50 mmol/L (4.00-12.00); BUN/Creat Ratio 19.63 Ratio (12.00-20.00); Blood Urea Nitrogen 53.0 mg/dL (9.0-27.0); Calcium 9.4 mg/dL (8.7-10.3); Carbon Dioxide 17.5 mmol/L (21.6-31.8); Chloride 104 mmol/L (96-109); Cholesterol 125.00 mg/dL (0.00-200.00); Globulin 4.0 g/dL (1.6-3.3); Glucose 103 mg/dL (70-110); HDL Cholesterol 26.60 mg/dL (40.00-60.00); LDL Cholesterol,Calculated 70.2 mg/dL (0.0-131.0); Potassium 5.0 mmol/L (3.5-5.5); Prostate Specific Antigen 1.78 ng/mL (0.000-6.500); Sodium 137 mmol/L (135-145); Total Protein 7.5 g/dL (6.2-8.2); Triglycerides 141.00 mg/dL (0.00-149.00); Uric Acid 6.6 mg/dL (3.7-8.7); VLDL Calculation 28.20 mg/dL (5.00-40.00)
== END | disposition home or self-care (01) ==
LOC: LABWHC1 08:21
PROVIDERS: ATTEND Internal Medicine Geriatric Medicine
DX: I25.10 Atherosclerotic heart disease of native coronary artery without angina pectoris (principal); E11.22 Type 2 diabetes mellitus with diabetic chronic kidney disease; N18.4 Chronic kidney disease, stage 4 (severe); N40.0 Benign prostatic hyperplasia without lower urinary tract symptoms
CPT/HCPCS: 36415; 80053; 80061; 82043; 82570; 83036; 84153; 84443; 84550; 85025